=== PATIENT | male | born 1935 | race Caucasian/White ===

== ENCOUNTER 2017-10-20 10:21 | Observation (INO) ==
--- NOTE | 2017-10-20 10:42 | Emergency Department Note ---
ED Disposition Clinical Impression: Right hemiparesis, Constipation, Intractable abdominal pain, Abdominal aortic aneurysm (AAA), Renal insufficiency Disposition: Still a Patient Condition on Discharge: Fair Instructions: DI for Acute Abdomen - Critical Care Critical Care Time: No Attestation: On , the high probability of a clinically significant, sudden or life threatening deterioration of the following system(s) required my full and direct attention, intervention and personal management. The time I documented below is in addition to time spent performing reported procedures but includes the following listed in this critical care notation. Medical Decision Making - Medical Records Medical records reviewed: Yes: I reviewed the patient's medical records. - Sami Inquiry Pt receiving controlled substance: No Sami was queried for this patient: No Vital Signs: 10/20/17 10:22 10/20/17 11:17 10/20/17 11:45 Temperature 98.4 F Temperature Source Oral Pulse Rate [Right Radial] 69 68 64 Respiratory Rate 18 20 20 Blood Pressure [Right Arm] 127/97 128/79 153/83 Blood Pressure Mean [Right Arm] 107 95 106 Blood Pressure Source [Right Arm] Automatic Cuff Automatic Cuff Automatic Cuff Blood Pressure Position [Right Arm] Supine Standing Supine 02 Sat by Pulse Oximetry 95 95 95 Oxygen Delivery Method Room Air Room Air Room Air - Lab Data Lab Results 10/20/17 10:30: WBC 8.4, RBC 4.36 L, Hgb 11.1 L, Hct 36.3 L, MCV 83.4, MCH 25.4 L, MCHC 30.5 L, RDW 17.3, Plt Count 496 H, MPV 7.1 L, Neut % (Auto) 75.4, Lymph % (Auto) 10.5, [place] % (Auto) 6.8, Eos % (Auto) 6.7, Baso % (Auto) 0.6, Neut # ( Auto) 6.3, Lymph # (Auto) 0.9, [place] # (Auto) 0.6, Eos # (Auto) 0.6 H, Baso # ( Auto) 0.1 10/20/17 10:30: Sodium 135 L, Potassium 3.7, Chloride 100, Carbon Dioxide 30, Anion Gap 8.7, BUN 19 H, Creatinine 1.35 H, Estimated Creat Clear 39, Estimated GFR 51 L, Est GFR ( Amer) 61, Glucose 91, Calcium 8.2 L, Total Bilirubin 0.5, AST 25, ALT 16, Alkaline Phosphatase 94, Total Protein 6.1 L, Albumin 2.4 L , Globulin 3.7 H, Albumin/Globulin Ratio 0.6 L, Lipase 41 L Result diagrams: 10/20/17 10:30 10/20/17 10:30 Orders (Tests/Meds): ED MEDICATIONS Discontinued Medications Generic Name Dose Route Start Last Admin Trade Name Freq PRN Reason Stop Dose Admin Sodium Chloride 500 mls @ 999 mls/hr 10/20/17 11:30 Sod Chlor 0.9% 1000ml Bag IV 10/20/17 12:00 .Q31M JOE ORDERS Category Date Time Status Lactic Acid Stat Lab 10/20/17 11:29 Ordered Medical Decision Narrative: I discussed with the and his children in the ending of fecal impaction resulting from prolonged constipation and use of narcotics. They were adamant that they have used every possible method to relieve him and they demanded CT scan. I discussed the results of the CT scan with the family informed them of his severe constipation and extending to the rectosigmoid colon. In addition to a relatively stable abdominal aortic aneurysm and common iliac aneurysms. The family was collectively agreeable that he is not a candidate for surgery or intervention. Called Dr. Simon and discussed with him more complains of approach of his severe constipation that Dr. Perez the radiologist said it is the worst ever. Dr. Simon agreed to admit the patient and consult general surgery for him. Abdominal Pain HPI - General Chief Complaint: Abdominal Pain Stated Complaint: Abdominal Pain Time Seen by Provider: 10/20/17 10:30 Mode of Arrival: EMS Limitations: Physical Limitations Description of Symptoms (Recalled from ER Triage Doc. by RN): Abdominal Pain - History of Present Illness HPI narrative: 82 years old and hospice service due to 32 years old right hemiparesis from a stroke and congestive heart failure. Been experiencing abdominal pain for the past 3 months associated with constipation he usually gets a bowel movement every 3-5 days. He has been getting morphine for abdominal pain and his last bowel movement was 5 days ago. He has no vomiting no coffee-ground emesis is no bleeding per rectum or diarrhea. Has no fever or chills. He continues to receive p.o. intake. MD complaint: abdominal pain Onset (ago): month(s) (x 3 months) Location: diffuse Severity: mild Quality: cramping Radiation: none Migration to: no migration Relieving factors: medication (yes, morpine. ) Exacerbating factors: eating, bowel movement (lack of bowel movement. ) Associated symptoms: denies other symptoms Treatments prior to arrival: prescription analgesics - Related Data Home Medications Medication Instructions Recorded Confirmed Sennosides [Senna] 8.6 mg PO BID 10/20/17 10/20/17 Allergies Allergy/AdvReac Type Severity Reaction Status Date / Time No Known Allergies Allergy Unverified 07/07/17 15:03 [facility] History I have reviewed the patient's past medical history: Yes (by the famil , nursing staff and hospice.) Amputation: No Fractures: No - Social History Educational Level: Completed High School Smoking Status: Never smoker Alcohol Intake: never - Psychiatric History Expresses thoughts of harming self/others: None Suicide Plan Description: No Plan ROS Obtained: Yes All systems reviewed & no additional complaints Physical Exam - General General appearance: alert, in no apparent distress - Head Head exam: atraumatic, normocephalic, normal inspection - Eye Eye exam: Present: normal appearance, PERRL, EOMI - ENT ENT exam: Present: normal exam, normal oropharynx, mucous membranes moist, TM's normal bilaterally, normal external ear exam - Neck Neck exam: Present: normal inspection, full ROM, trachea midline. Absent: meningismus, lymphadenopathy - Chest Chest inspection: Present: normal inspection, symmetric chest wall rise. Absent : tenderness - Respiratory Respiratory exam: Present: normal lung sounds bilaterally. Absent: respiratory distress - Cardiovascular Cardiovascular exam: Present: regular rate, normal rhythm. Absent: JVD - Abdominal Exam Abdominal exam: Present: soft, distention, hyperactive bowel sounds (Soft distended hyperactive bowel sounds no guarding no rigidity no focal tenderness no rebound no cross tenderness. ), other (Soft distended with positive bowel sounds). Absent: tenderness, guarding, rebound, rigidity Comment: Immediately after the anal verge there was a large hard mass of stool the prostate was not palpable. Large fecal impaction. - exam: Present: normal inspection, normal testicular lie, other ( Uncircumcised with indwelling catheter.) - Extremities Exam Extremities exam: Present: other (Right hemiparesis.) - Neurological Exam Neurological exam: Present: alert, CN II-XII intact, other (Right hemiparesis.) - Psychiatric Psychiatric exam: Present: flat affect - Skin Skin exam: Present: other (There is a grade 2 bedsore over the right buttock.) - Lymphatic Lymphatic Findings: no adenopathy
[2017-10-20 10:48] LABS: Basophils # 0.1 K/mm3 (0-0.2); Basophils % 0.6 % (0.1-2.0); Eosinophils # 0.6 K/mm3 (0.0-0.4); Eosinophils % 6.7 % (0.1-12.0); Hematocrit 36.3 % (42.0-52.0); Hemoglobin 11.1 g/dL (14.1-18.0); Lymphocytes # 0.9 K/mm3 (0.7-4.5); Lymphocytes % 10.5 K/mm3 (10-50); Mean Corpuscular HGB Conc 30.5 g/dL (31.8-35.4); Mean Corpuscular Hemoglobin 25.4 pg (27.0-31.2); Mean Corpuscular Volume 83.4 fl (80-94); Mean Platelet Volume 7.1 fl (7.4-10.4); Monocytes # 0.6 K/mm3 (0.1-1.0); Monocytes % 6.8 % (1.7-9.3); Neutrophils # 6.3 K/mm3 (1.8-7.8); Neutrophils % 75.4 % (37.0-80.0); Platelet Count 496 K/mm3 (142-424); Red Blood Count 4.36 M/mm3 (4.60-6.20); Red Cell Distribution Width 17.3 % (11.5-17.5); White Blood Count 8.4 K/mm3 (4.8-10.8)
[2017-10-20 11:00] LABS: Albumin Level 2.4 gm/dL (3.4-5.0); Albumin/Globulin Ratio 0.6 (1.1-1.8); Anion Gap 8.7 mEq/L (5-15); Bilirubin,Total 0.5 mg/dL (0.2-1.0); Calcium 8.2 mg/dL (8.5-10.1); Globulin 3.7 gm/dl (1.3-3.2); Potassium 3.7 mmoL/L (3.5-5.1); Total Protein,Serum 6.1 gm/dL (6.4-8.2)
--- NOTE | 2017-10-20 14:49 | History & Physical Report ---
*Admission Date: 10/20/17 <Angelina Randolph 10/20/17 14:49> *Chief complaint: constipation <Angelina Randolph 10/20/17 14:49> *History of present illness: Mr Og is an 82 years old male under hospice service for 1 year due to 32 years old right hemiparesis from a stroke and congestive heart failure. He has been experiencing abdominal pain for the past 3 months associated with constipation. He usually has a bowel movement every 3-5 days. He has been getting morphine for abdominal pain and his last bowel movement was 5 days ago. He has had no vomiting or coffee-ground emesis and no bleeding per rectum or diarrhea. Has no fever or chills. His has had him on full liquids and clear liquids. She puries all of his food. The abdominal pain has increased over the last week. Hospice has tried to intervene and have given him lactulose, suppositories and several enemas. They have also removed fecal impactions. He has continued to have abdominal pain and required pain medicine about every 2 hours. Thus they brought him to the emergency room for further studies. With evaluation in the emergency room CT scan revealed large amounts of stool in the large colon with a huge fecal impaction at the sigmoid colon. Thus he was admitted with surgical consultation. At the time of this exam patient is resting quietly on his right side. He has and family are at bedside. He remains remains n.p.o. until after surgical consultation. <Angelina Randolph 10/20/17 15:59> [facility] History Medical History: Reports:: Aneurysm, Atherosclerotic Heart Disease, BPH, Cardiomyopathy, Congestive Heart Failure, Coronary Artery Disease, Cerebrovascular Accident, Depression, Hypertension, Myocardial Infarction, Renal Disease, Ulcer <Angelina Randolph 10/20/17 15:09> Other Medical History: Reports: Hypothyroidism, Thyroid Disease, Other (Chronic constipation: A phasic) <Angelina Randolph 10/20/17 15:09> Laterality Cases: Left: Other <Angelina Randolph 10/20/17 15:09> Amputation: No <Angelina Randolph 10/20/17 14:49> Fractures: No <Angelina Randolph 10/20/17 14:49> Comment: Discectomy in 1967; knee arthroplasty; deviated septum <Angelina Randolph 10/20/17 15:09> - *Social History Educational Level: Completed High School <Angelina Randolph 10/20/17 14:49> Smoking Status: Never smoker <Angelina Randolph 10/20/17 14:49> Alcohol Intake: never <Angelina Randolph 10/20/17 14:49> - Psychiatric History Expresses thoughts of harming self/others: None <Angelina Randolph 10/20/17 14: 49> Suicide Plan Description: No Plan <Angelina Randolph 10/20/17 14:49> *Family Hx:: Coronary Artery Disease, Diabetes <Angelina Randolph 10/20/17 15:09 > Review of Systems - Review of Systems Information obtained from patient's . <Angelina Randolph 10/20/17 15:59> - Constitutional Denies fever(s), Denies headache(s) <Angelina Randolph 10/20/17 15:59> - ENT Comments: No upper respiratory signs or symptoms <Angelina Randolph 10/20/17 15:59> - *Cardiovascular Denies chest pain, Denies shortness of breath <Angelina Randolph 10/20/17 15:59> - *Respiratory Denies chest congestion, Denies cough, Denies shortness of breath <Angelina Randolph 10/20/17 15:59> - *Gastrointestinal Reports abdominal pain, Reports change in bowel habits, Reports constipation, Denies loose stools, Denies difficulty swallowing, Denies vomiting blood, Denies vomiting <Angelina Randolph 10/20/17 15:59> - *Genitourinary Comments: Patient has a Morley catheter <Angelina Randolph 10/20/17 15:59> - *Musculoskeletal Comments: Patient has been bedfast since June 2017 <Angelina Randolph 10/20/17 15:59> - *Neurologic Comments: Dysphasic <Angelina Randolph 10/20/17 15:59> Meds Home Medications Medication Instructions Recorded Confirmed Type Amlodipine Besylate [Amlodipine 10 mg PO DAILY 10/20/17 10/20/17 History 10mg Tab] Aspirin [Aspirin 81mg EC Tab] 81 mg PO DAILY 10/20/17 10/20/17 History Bisacodyl [Dulcolax 10mg Supp] 10 mg RC DAILYP PRN 10/20/17 10/20/17 History Ciprofloxacin HCl [Cipro 500mg Tab] 500 mg PO BID 10/20/17 10/20/17 History Hydralazine HCl 50 mg PO BID 10/20/17 10/20/17 History Hydromorphone HCl [Dilaudid 4mg 2 mg PO Q4HP PRN 10/20/17 10/20/17 History Tab] Hyoscyamine Sulfate [Levsin 0.125 mg PO Q4-6H 10/20/17 10/20/17 History 0.125mg tablet] Isosorbide Dinitrate [Isordil 20mg 40 mg PO TID 10/20/17 10/20/17 History tablet] L.acidoph,Paracasei, B.lactis 1 each PO DAILY 10/20/17 10/20/17 History [Probiotic] LORazepam [Ativan 0.5mg tablet] 0.5 mg PO Q6 MDD 2mg 10/20/17 10/20/17 History Levothyroxine Sodium 50 mcg PO DAILY 10/20/17 10/20/17 History [Levothyroxine 50mcg (0.05mg) Tab] Metoclopramide HCl [Reglan 5mg 5 mg PO TID 10/20/17 10/20/17 History Tablet] Morphine Sulfate [Morphine Sulfate 10 mg PO Q4-6H PRN MDD 80mg 10/20/17 History 10mg/5ml Oral Soln] Nitroglycerin [Nitrostat 0.4mg SL 0.4 mg SL NEEDED PRN 10/20/17 10/20/17 History Tablet] Sennosides [Senna] 8.6 mg PO BID 10/20/17 10/20/17 History Simethicone [Phazyme] 60 mg PO TID MDD 1 10/20/17 10/20/17 History Torsemide [Demadex] 20 mg PO DAILY MDD 20mg 10/20/17 10/20/17 History hydrOXYzine HCl [Hydroxyzine HCl] 10 mg PO Q4-6H 10/20/17 10/20/17 History metroNIDAZOLE [metroNIDAZOLE 500mg 500 mg PO TIDWM 10/20/17 10/20/17 History Tablet] <Cruzito Simon - 10/20/17 17:56> Allergies Allergy/AdvReac Type Severity Reaction Status Date / Time No Known Allergies Allergy Unverified 07/07/17 15:03 <Cruzito Simon - 10/20/17 17:56> Exam Vital signs and Labs for Last 24 Hours: Temp Pulse Resp BP Pulse Ox 98.2 F 68 18 156/96 92 L 10/20/17 15:45 10/20/17 15:45 10/20/17 15:45 10/20/17 15:45 10/20/17 15:45 <Cruzito Simon - 10/20/17 17:56> Temp Pulse Resp BP Pulse Ox 98.2 F 65 18 145/85 95 10/20/17 13:31 10/20/17 14:35 10/20/17 14:35 10/20/17 14:35 10/20/17 14:35 Laboratory Tests 10/20/17 10/20/17 10/20/17 10:30 10:30 11:58 WBC 8.4 RBC 4.36 L Hgb 11.1 L Hct 36.3 L MCV 83.4 MCH 25.4 L MCHC 30.5 L Plt Count 496 H Neut % (Auto) 75.4 Lymph % (Auto) 10.5 [place] % (Auto) 6.8 Eos % (Auto) 6.7 Baso % (Auto) 0.6 Neut # (Auto) 6.3 Lymph # (Auto) 0.9 [place] # (Auto) 0.6 Eos # (Auto) 0.6 H Baso # (Auto) 0.1 Sodium 135 L Potassium 3.7 Chloride 100 Carbon Dioxide 30 Anion Gap 8.7 BUN 19 H Creatinine 1.35 H Estimated Creat Clear 39 Estimated GFR 51 L Est GFR ( Amer) 61 Glucose 91 Lactic Acid 1.1 Calcium 8.2 L Total Bilirubin 0.5 AST 25 ALT 16 Alkaline Phosphatase 94 Total Protein 6.1 L Albumin 2.4 L Globulin 3.7 H Albumin/Globulin Ratio 0.6 L Lipase 41 L <Angelina Randolph - 10/20/17 14:49> I & O for Last 24 hours: Intake & Output 10/18/17 10/19/17 10/20/17 10/21/17 11:59 11:59 11:59 11:59 Weight 119 lb 4 oz <Cruzito Simon 10/20/17 17:56> Radiology Reports for the Last 24 Hours: 10/20/2017 CT of the abdomen and pelvis Pelvis IMPRESSION: There are findings of very marked diffuse constipation with large fecal impaction of the rectum and lower sigmoid colon with the diameter of the upper rectum measuring 11.1 cm. The degree of constipation similar to the previous study in January 2017 though there could be more stool in the rectum and lower sigmoid colon and the previous study. 2. 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 Additional aneurysmal dilatation of infrarenal aorta with measurements as described above with extension into the right common iliac artery. <Angelina Randolph 10/20/17 14:49> - Constitutional no acute distress, thin <Angelina Randolph 10/20/17 15:59> Comments: Appears comfortable in the bed. Nods head with answers to questions <Angelina Randolph 10/20/17 15:59> - *Routine HEENT Exam Head: Present: normocephalic <Angelina Randolph 10/20/17 15:59> ENT: Present: mucous membranes moist <Angelina Randolph 10/20/17 15:59> - *Routine Respiratory Exam Comments: Poor inspiratory effort <Angelina Randolph 10/20/17 15:59> - *Routine Cardiovascular Exam Present: RRR <Angelina Randolph 10/20/17 15:59> - *Routine Abdominal Exam Comments: Hyperactive bowel sounds. Tender in left upper and mid quadrants. Fullness palpated. <Angelina Randolph 10/20/17 15:59> - *Routine Extremities Exam Absent: edema, calf tenderness <Angelina Randolph 10/20/17 15:59> - *Routine Skin Exam Comments: Wound on right hip. <Angelina Randolph 10/20/17 15:59> - *Routine Neurological Exam Present: alert <Angelina Randolph 10/20/17 15:59> Dysphagia <Angelina Randolph 10/20/17 15:59> Assessment and Plan (1) Constipation Current visit: Yes Status: Acute Category: Medical Code(s): K59.00 - Constipation, unspecified (2) Intractable abdominal pain Current visit: Yes Status: Acute Category: Medical Code(s): R10.9 - Unspecified abdominal pain (3) CAD (coronary artery disease) Current visit: Yes Status: Chronic Category: Medical Code(s): I25.10 - Atherosclerotic heart disease of [place] coronary artery without angina pectoris (4) Cardiomyopathy Current visit: Yes Status: Chronic Category: Medical Code(s): I42.9 - Cardiomyopathy, unspecified (5) BPH (benign prostatic hyperplasia) Current visit: Yes Status: Chronic Category: Medical Code(s): N40.0 - Benign prostatic hyperplasia without lower urinary tract symptoms (6) Depression Current visit: Yes Status: Chronic Category: Medical Code(s): F32.9 - Major depressive disorder, single episode, unspecified (7) Abdominal aortic aneurysm (AAA) Current visit: Yes Status: Chronic Category: Medical Code(s): I71.4 - Abdominal aortic aneurysm, without rupture (8) Renal insufficiency Current visit: Yes Status: Chronic Category: Medical Code(s): N28.9 - Disorder of kidney and ureter, unspecified (9) Right hemiparesis Current visit: Yes Status: Chronic Category: Medical Code(s): G81.91 - Hemiplegia, unspecified affecting right dominant side <Angelina Randolph - 10/20/17 15:43> (1) Obstipation Current visit: Yes Status: Acute Category: Medical Code(s): K59.00 - Constipation, unspecified (2) Chronic constipation Current visit: Yes Status: Chronic Category: Medical Code(s): K59.09 - Other constipation (3) Intractable abdominal pain Current visit: Yes Status: Acute Category: Medical Code(s): R10.9 - Unspecified abdominal pain (4) CAD (coronary artery disease) Current visit: Yes Status: Chronic Category: Medical Code(s): I25.10 - Atherosclerotic heart disease of [place] coronary artery without angina pectoris (5) Cardiomyopathy Current visit: Yes Status: Chronic Category: Medical Code(s): I42.9 - Cardiomyopathy, unspecified (6) BPH (benign prostatic hyperplasia) Current visit: Yes Status: Chronic Category: Medical Code(s): N40.0 - Benign prostatic hyperplasia without lower urinary tract symptoms (7) Depression Current visit: Yes Status: Chronic Category: Medical Code(s): F32.9 - Major depressive disorder, single episode, unspecified (8) Abdominal aortic aneurysm (AAA) Current visit: Yes Status: Chronic Category: Medical Code(s): I71.4 - Abdominal aortic aneurysm, without rupture (9) Renal insufficiency Current visit: Yes Status: Chronic Category: Medical Code(s): N28.9 - Disorder of kidney and ureter, unspecified (10) Right hemiparesis Current visit: Yes Status: Chronic Category: Medical Code(s): G81.91 - Hemiplegia, unspecified affecting right dominant side <Cruzito Simon - 10/20/17 17:56> - Assessment and plan all Dx Assessment and Plan for all problems:: Patient seen and examined. Appears comfortable at this time. Presentation today is similar to admission of 01/2017 at which time he responded to Suppositories and Mineral Oil enemas. THese have been ordered per Dr. Bernal's surgical consultation. Will advance to full liquid diet. <Cruzito Simon - 10/20/17 17:56>
--- NOTE | 2017-10-20 17:38 | Consult Report ---
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 He has been experiencing abdominal pain for the past 3 months associated with constipation. He usually has a bowel movement every 3-5 days. He has been getting morphine for abdominal pain and his last bowel movement was 5 days ago. He has had no vomiting or coffee-ground emesis and no bleeding per rectum or diarrhea. Has no fever or chills. His has had him on full liquids and clear liquids. She puries all of his food. The abdominal pain has increased over the last week. Hospice has tried to intervene and have given him lactulose, suppositories and several enemas. They have also removed fecal impactions. He has continued to have abdominal pain and required pain medicine about every 2 hours. Thus they brought him to the emergency room for further studies. With evaluation in the emergency room CT scan revealed large amounts of stool in the large colon with a huge fecal impaction at the sigmoid colon. Thus he was admitted with surgical consultation. Review of Systems - Review of Systems Review of systems:: unable to obtain - *Neurologic Denies headache(s) [facility] History Medical History: Reports:: Aneurysm, Atherosclerotic Heart Disease, BPH, Cardiomyopathy, Congestive Heart Failure, Coronary Artery Disease, Cerebrovascular Accident, Depression, Hypertension, Myocardial Infarction, Renal Disease, Ulcer Denies:: Diabetes Mellitus Type 1, Diabetes Mellitus Type 2 Other Medical History: Reports: Hypothyroidism, Thyroid Disease, Other (Chronic constipation: A phasic) Laterality Cases: Left: Other Amputation: No Fractures: No - *Social History Educational Level: Completed High School Smoking Status: Never smoker Alcohol Intake: never Occupational Status: disabled Housing: house Household Members: spouse, family - Psychiatric History Expresses thoughts of harming self/others: None Suicide Plan Description: No Plan Pschychiatric History:: Reports:: Depression *Family Hx:: Coronary Artery Disease, Diabetes Meds Home Medications Medication Instructions Recorded Confirmed Type Amlodipine Besylate [Amlodipine 10 mg PO DAILY 10/20/17 10/20/17 History 10mg Tab] Bisacodyl [Dulcolax 10mg Supp] 10 mg RC DAILYP PRN 10/20/17 10/20/17 History Ciprofloxacin HCl [Cipro 500mg Tab] 500 mg PO BID 10/20/17 10/20/17 History Famciclovir [Famciclovir] 500 mg PO DAILY 10/20/17 10/20/17 History Gabapentin [Gabapentin 300mg Cap] 300 mg PO HS MDD 300 10/20/17 10/20/17 History Hydralazine HCl 50 mg PO BID 10/20/17 10/20/17 History Hyoscyamine Sulfate [Levsin 0.125 mg PO Q4-6H 10/20/17 10/20/17 History 0.125mg tablet] Isosorbide Dinitrate [Isordil 20mg 40 mg PO TID 10/20/17 10/20/17 History tablet] LORazepam [Ativan 0.5mg tablet] 0.5 mg PO Q6 MDD 2mg 10/20/17 10/20/17 History Lactulose [Lactulose 20gm/30ml 20 gm PO DAILYP PRN 10/20/17 10/20/17 History Oral Soln] Levothyroxine Sodium 50 mcg PO DAILY 10/20/17 10/20/17 History [Levothyroxine 50mcg (0.05mg) Tab] Lidocaine/Prilocaine 1 units TOPICAL TID 10/20/17 10/20/17 History [Lidocaine-Prilocaine Cream] Metoclopramide HCl [Reglan 5mg 5 mg PO TID 10/20/17 10/20/17 History Tablet] Morphine Sulfate [Morphine Sulfate 10 mg PO Q4-6H PRN MDD 80mg 10/20/17 History 10mg/5ml Oral Soln] Nitroglycerin [Nitrostat 0.4mg SL 0.4 mg SL NEEDED PRN 10/20/17 10/20/17 History Tablet] Sennosides [Senna] 8.6 mg PO BID 10/20/17 10/20/17 History Simethicone [Phazyme] 60 mg PO TID MDD 1 10/20/17 10/20/17 History Torsemide [Demadex] 20 mg PO DAILY MDD 20mg 10/20/17 10/20/17 History hydrOXYzine HCl [Hydroxyzine HCl] 10 mg PO Q4-6H 10/20/17 10/20/17 History metroNIDAZOLE [metroNIDAZOLE 500mg 500 mg PO TIDWM 10/20/17 10/20/17 History Tablet] Allergies Allergy/AdvReac Type Severity Reaction Status Date / Time No Known Allergies Allergy Unverified 07/07/17 15:03 Exam Vital signs and Labs for Last 24 Hours: Temp Pulse Resp BP Pulse Ox 98.2 F 68 18 156/96 92 L 10/20/17 15:45 10/20/17 15:45 10/20/17 15:45 10/20/17 15:45 10/20/17 15:45 I & O for Last 24 hours: Intake & Output 10/18/17 10/19/17 10/20/17 10/21/17 11:59 11:59 11:59 11:59 Weight 119 lb 4 oz - Constitutional no acute distress - *Routine Abdominal Exam Present: soft. Absent: tenderness Results - Labs 10/20/17 10:30 10/20/17 10:30 Assessment and Plan (1) Constipation Current visit: Yes Status: Acute Category: Medical Code(s): K59.00 - Constipation, unspecified (2) Intractable abdominal pain Current visit: Yes Status: Acute Category: Medical Code(s): R10.9 - Unspecified abdominal pain (3) CAD (coronary artery disease) Current visit: Yes Status: Chronic Category: Medical Code(s): I25.10 - Atherosclerotic heart disease of [place] coronary artery without angina pectoris (4) Cardiomyopathy Current visit: Yes Status: Chronic Category: Medical Code(s): I42.9 - Cardiomyopathy, unspecified (5) BPH (benign prostatic hyperplasia) Current visit: Yes Status: Chronic Category: Medical Code(s): N40.0 - Benign prostatic hyperplasia without lower urinary tract symptoms (6) Depression Current visit: Yes Status: Chronic Category: Medical Code(s): F32.9 - Major depressive disorder, single episode, unspecified (7) Abdominal aortic aneurysm (AAA) Current visit: Yes Status: Chronic Category: Medical Code(s): I71.4 - Abdominal aortic aneurysm, without rupture (8) Renal insufficiency Current visit: Yes Status: Chronic Category: Medical Code(s): N28.9 - Disorder of kidney and ureter, unspecified (9) Right hemiparesis Current visit: Yes Status: Chronic Category: Medical Code(s): G81.91 - Hemiplegia, unspecified affecting right dominant side - Assessment and plan all Dx Assessment and Plan for all problems:: Previously when the patient had similar symptoms he responded to bowel regimen from below. I would recommend withholding oral cathartics at this time due to this eliciting cramping abdominal pain. Previously he responded to mineral oil enemas and Dulcolax suppositories. I will go ahead and order this. Plan for mineral oil enema and 2 Dulcolax suppositories tonight. This may be repeated tomorrow. If he continues to have problems and refractory constipation milk and molasses enema may be considered.
[2017-10-21 06:36] LABS: Basophils # 0.1 K/mm3 (0-0.2); Basophils % 0.6 % (0.1-2.0); Eosinophils # 0.4 K/mm3 (0.0-0.4); Eosinophils % 4.5 % (0.1-12.0); Hematocrit 39.3 % (42.0-52.0); Hemoglobin 11.9 g/dL (14.1-18.0); Lymphocytes # 0.6 K/mm3 (0.7-4.5); Mean Corpuscular HGB Conc 30.2 g/dL (31.8-35.4); Mean Corpuscular Hemoglobin 25.3 pg (27.0-31.2); Mean Corpuscular Volume 83.8 fl (80-94); Mean Platelet Volume 7.3 fl (7.4-10.4); Monocytes # 0.6 K/mm3 (0.1-1.0); Monocytes % 5.5 % (1.7-9.3); Neutrophils # 8.3 K/mm3 (1.8-7.8); Neutrophils % 83.4 % (37.0-80.0); Platelet Count 503 K/mm3 (142-424); Red Blood Count 4.68 M/mm3 (4.60-6.20); Red Cell Distribution Width 17.3 % (11.5-17.5); White Blood Count 9.9 K/mm3 (4.8-10.8)
[2017-10-21 06:43] LABS: Anion Gap 12.7 mEq/L (5-15); Potassium 3.7 mmoL/L (3.5-5.1)
--- NOTE | 2017-10-21 06:58 | Progress Note ---
Subjective Patient reports: bowel movement ((2 large BMs per nsg)) Exam Vital signs and Labs for Last 24 Hours: Temp Pulse Resp BP Pulse Ox 98.1 F 91 H 20 148/95 94 L 10/21/17 04:00 10/21/17 04:00 10/21/17 04:00 10/21/17 04:00 10/21/17 04:00 Laboratory Results - last 24 hr 10/21/17 06:10: WBC 9.9, RBC 4.68, Hgb 11.9 L, Hct 39.3 L, MCV 83.8, MCH 25.3 L , MCHC 30.2 L, RDW 17.3, Plt Count 503 H, MPV 7.3 L, Neut % (Auto) 83.4 H, Lymph % (Auto) 6.0 L, [place] % (Auto) 5.5, Eos % (Auto) 4.5, Baso % (Auto) 0.6, Neut # (Auto) 8.3 H, Lymph # (Auto) 0.6 L, [place] # (Auto) 0.6, Eos # (Auto) 0.4, Baso # (Auto) 0.1 10/21/17 06:10: Sodium 138, Potassium 3.7, Chloride 102, Carbon Dioxide 27, Anion Gap 12.7, BUN 18, Creatinine 1.30, Estimated Creat Clear 34, Estimated GFR 53 L, Est GFR ( Amer) 64, Glucose 99 I & O for Last 24 hours: Intake & Output 10/18/17 10/19/17 10/20/17 10/21/17 11:59 11:59 11:59 11:59 Output Total 1400 / 1400 Balance -1400 / -1400 Weight 119 lb 4 oz - Constitutional no acute distress - *Routine Abdominal Exam Present: soft Progress Note: A&P (1) Obstipation Status: Acute Current Visit: Yes (2) Chronic constipation Status: Chronic Assessment and plan: Significant results with mineral oil enemas and dulcolax suppositories. Continue above regimen PRN. May require milk and molasses enemas if he does not continue to respond to above. Current Visit: Yes (3) Intractable abdominal pain Status: Acute Current Visit: Yes (4) CAD (coronary artery disease) Status: Chronic Current Visit: Yes (5) Cardiomyopathy Status: Chronic Current Visit: Yes (6) BPH (benign prostatic hyperplasia) Status: Chronic Current Visit: Yes (7) Depression Status: Chronic Current Visit: Yes (8) Abdominal aortic aneurysm (AAA) Status: Chronic Current Visit: Yes (9) Renal insufficiency Status: Chronic Current Visit: Yes (10) Right hemiparesis Status: Chronic Current Visit: Yes
--- NOTE | 2017-10-21 07:22 | Pharmacy Consult Notes ---
[facility] Pharmacy VTE Monitoring - Patient Demographics Admission date: 10/20/17 Report Date: 10/21/17 Time: 07:21 Allergies/Adverse Reactions: Patient Allergies No Known Allergies Allergy (Unverified 07/07/17 15:03) Height: 1.7 m Weight: 54.091 kg Patient Problems: Current Active Problems Right hemiparesis (Chronic) Constipation (Acute) Intractable abdominal pain (Acute) Abdominal aortic aneurysm (AAA) (Chronic) Renal insufficiency (Chronic) CAD (coronary artery disease) (Chronic) Cardiomyopathy (Chronic) BPH (benign prostatic hyperplasia) (Chronic) Depression (Chronic) Chronic constipation (Chronic) Obstipation (Acute) - VTE Risk Labs: VTE Related Lab Results Hgb 11.9 g/dL (14.1-18.0) L 10/21/17 06:10 Hct 39.3 % (42.0-52.0) L 10/21/17 06:10 Plt Count 503 K/mm3 (142-424) H 10/21/17 06:10 BUN 18 mg/dL (7-18) 10/21/17 06:10 Creatinine 1.30 mg/dL (0.70-1.30) 10/21/17 06:10 Estimated Creat Clear 34 mL/min (0-300) 10/21/17 06:10 Was VTE Risk Assessment Performed: Yes VTE Score: 4 VTE Risk Level: Low Risk - Prophylaxis VTE Prophylaxis Ordered?: Yes Types of VTE Prophylaxis: TEDS Knee High Location of Applied Device: Bilateral Lower Extremeties - VTE Diagnosis Confirmed Treatment or plan recommended: Continue Current Treatment
--- NOTE | 2017-10-21 08:04 | Progress Note ---
<Angelina Randolph - Last Filed: 10/21/17 07:56> Internal Medicine - PN: Subj *Date: 10/21/17 *Time: 07:56 Interval history: Per son: Patient had a few restless moments during the night but otherwise slept. He did not require any additional pain medicine. He has had 2 large soft stools. Did take in liquids last p.m. TSH elevated at 5.67 Exam Vital signs and Labs for Last 24 Hours: Temp Pulse Resp BP Pulse Ox 98.9 F 73 20 140/84 95 10/21/17 07:29 10/21/17 07:29 10/21/17 07:29 10/21/17 07:29 10/21/17 07:29 Laboratory Results - last 24 hr 10/21/17 06:10: WBC 9.9, RBC 4.68, Hgb 11.9 L, Hct 39.3 L, MCV 83.8, MCH 25.3 L , MCHC 30.2 L, RDW 17.3, Plt Count 503 H, MPV 7.3 L, Neut % (Auto) 83.4 H, Lymph % (Auto) 6.0 L, [place] % (Auto) 5.5, Eos % (Auto) 4.5, Baso % (Auto) 0.6, Neut # (Auto) 8.3 H, Lymph # (Auto) 0.6 L, [place] # (Auto) 0.6, Eos # (Auto) 0.4, Baso # (Auto) 0.1 10/21/17 06:10: Sodium 138, Potassium 3.7, Chloride 102, Carbon Dioxide 27, Anion Gap 12.7, BUN 18, Creatinine 1.30, Estimated Creat Clear 34, Estimated GFR 53 L, Est GFR ( Amer) 64, Glucose 99 I & O for Last 24 hours: Intake & Output 10/18/17 10/19/17 10/20/17 10/21/17 11:59 11:59 11:59 11:59 Output Total 1400 / 1400 Balance -1400 / -1400 Weight 119 lb 4 oz - Constitutional no acute distress Comments: Sleeping - *Routine Respiratory Exam Present: CTA bilaterally Comments: Respirations even and unlabored - *Routine Cardiovascular Exam Present: RRR - *Routine Abdominal Exam Present: soft, normoactive bowel sounds - *Routine Extremities Exam Absent: edema Assessment and Plan (1) Obstipation Current visit: Yes Status: Acute Category: Medical Code(s): K59.00 - Constipation, unspecified (2) Chronic constipation Current visit: Yes Status: Chronic Category: Medical Code(s): K59.09 - Other constipation (3) Intractable abdominal pain Current visit: Yes Status: Acute Category: Medical Code(s): R10.9 - Unspecified abdominal pain (4) CAD (coronary artery disease) Current visit: Yes Status: Chronic Category: Medical Code(s): I25.10 - Atherosclerotic heart disease of [place] coronary artery without angina pectoris (5) Cardiomyopathy Current visit: Yes Status: Chronic Category: Medical Code(s): I42.9 - Cardiomyopathy, unspecified (6) BPH (benign prostatic hyperplasia) Current visit: Yes Status: Chronic Category: Medical Code(s): N40.0 - Benign prostatic hyperplasia without lower urinary tract symptoms (7) Depression Current visit: Yes Status: Chronic Category: Medical Code(s): F32.9 - Major depressive disorder, single episode, unspecified (8) Abdominal aortic aneurysm (AAA) Current visit: Yes Status: Chronic Category: Medical Code(s): I71.4 - Abdominal aortic aneurysm, without rupture (9) Renal insufficiency Current visit: Yes Status: Chronic Category: Medical Code(s): N28.9 - Disorder of kidney and ureter, unspecified (10) Right hemiparesis Current visit: Yes Status: Chronic Category: Medical Code(s): G81.91 - Hemiplegia, unspecified affecting right dominant side - Assessment and plan all Dx Assessment and Plan for all problems:: Maintain comfort. May need to repeat suppositories today. Increase synthroid <Cruzito Simon - Last Filed: 10/21/17 09:07> Internal Medicine - PN: Subj *Date: 10/21/17 *Time: 09:06 Exam Vital signs and Labs for Last 24 Hours: Temp Pulse Resp BP Pulse Ox 98.9 F 73 20 140/84 95 10/21/17 07:29 10/21/17 07:29 10/21/17 07:29 10/21/17 07:29 10/21/17 07:29 Laboratory Results - last 24 hr 10/21/17 06:10: WBC 9.9, RBC 4.68, Hgb 11.9 L, Hct 39.3 L, MCV 83.8, MCH 25.3 L , MCHC 30.2 L, RDW 17.3, Plt Count 503 H, MPV 7.3 L, Neut % (Auto) 83.4 H, Lymph % (Auto) 6.0 L, [place] % (Auto) 5.5, Eos % (Auto) 4.5, Baso % (Auto) 0.6, Neut # (Auto) 8.3 H, Lymph # (Auto) 0.6 L, [place] # (Auto) 0.6, Eos # (Auto) 0.4, Baso # (Auto) 0.1 10/21/17 06:10: Sodium 138, Potassium 3.7, Chloride 102, Carbon Dioxide 27, Anion Gap 12.7, BUN 18, Creatinine 1.30, Estimated Creat Clear 34, Estimated GFR 53 L, Est GFR ( Amer) 64, Glucose 99 I & O for Last 24 hours: Intake & Output 10/18/17 10/19/17 10/20/17 10/21/17 11:59 11:59 11:59 11:59 Intake Total 240 / 240 Output Total 1400 / 1400 Balance -1160 / -1160 Weight 119 lb 4 oz Assessment and Plan (1) Obstipation Current visit: Yes Status: Acute Category: Medical Code(s): K59.00 - Constipation, unspecified (2) Chronic constipation Current visit: Yes Status: Chronic Category: Medical Code(s): K59.09 - Other constipation (3) Intractable abdominal pain Current visit: Yes Status: Acute Category: Medical Code(s): R10.9 - Unspecified abdominal pain (4) CAD (coronary artery disease) Current visit: Yes Status: Chronic Category: Medical Code(s): I25.10 - Atherosclerotic heart disease of [place] coronary artery without angina pectoris (5) Cardiomyopathy Current visit: Yes Status: Chronic Category: Medical Code(s): I42.9 - Cardiomyopathy, unspecified (6) BPH (benign prostatic hyperplasia) Current visit: Yes Status: Chronic Category: Medical Code(s): N40.0 - Benign prostatic hyperplasia without lower urinary tract symptoms (7) Depression Current visit: Yes Status: Chronic Category: Medical Code(s): F32.9 - Major depressive disorder, single episode, unspecified (8) Abdominal aortic aneurysm (AAA) Current visit: Yes Status: Chronic Category: Medical Code(s): I71.4 - Abdominal aortic aneurysm, without rupture (9) Renal insufficiency Current visit: Yes Status: Chronic Category: Medical Code(s): N28.9 - Disorder of kidney and ureter, unspecified (10) Right hemiparesis Current visit: Yes Status: Chronic Category: Medical Code(s): G81.91 - Hemiplegia, unspecified affecting right dominant side - Assessment and plan all Dx Assessment and Plan for all problems:: Patient seen and examined. Concur with above. Will repeat suppository today and enema if needed.
--- NOTE | 2017-10-22 06:57 | Progress Note ---
Subjective Patient reports: no new complaints, bowel movement Exam Vital signs and Labs for Last 24 Hours: Temp Pulse Resp BP Pulse Ox 97.8 F 74 18 148/86 99 10/22/17 03:49 10/22/17 03:49 10/22/17 03:49 10/22/17 03:49 10/22/17 03:49 Laboratory Results - last 24 hr 10/21/17 18:08: Urine Color Yellow, Urine Appearance Clear, Urine pH 5.5, Ur Specific [place] 1.010, Urine Protein Negative, Urine Glucose (UA) Negative, Urine Ketones Negative, Urine Blood Trace-i, Urine Nitrate Positive, Urine Bilirubin Negative, Urine Urobilinogen 0.2, Ur Leukocyte Esterase 1+ A, Urine RBC 5-10, Urine WBC 10-20 A, Ur Squamous Epith Cells None, Urine Bacteria Trace , Hyaline Casts Occ I & O for Last 24 hours: Intake & Output 10/19/17 10/20/17 10/21/17 10/22/17 11:59 11:59 11:59 11:59 Intake Total 240 / 240 2408 / 2408 Output Total 1400 / 1400 1100 / 1100 Balance -1160 / -1160 1308 / 1308 Weight 119 lb 4 oz 125 lb 7.088 oz - Constitutional no acute distress - *Routine Respiratory Exam Absent: respiratory distress - *Routine Abdominal Exam Present: soft Progress Note: A&P (1) Obstipation Status: Acute Current Visit: Yes (2) Chronic constipation Status: Chronic Assessment and plan: The patient continues to have bowel function on his current regimen. Continue Dulcolax suppositories and mineral oil enemas ("at least" as needed). The patient has had fairly good results with Dulcolax suppositories and it may be reasonable to continue these on a somewhat scheduled basis. Slow advancement of diet over the next few weeks. Continue to increase fiber and fluid intake. Current Visit: Yes (3) Intractable abdominal pain Status: Acute Current Visit: Yes (4) CAD (coronary artery disease) Status: Chronic Current Visit: Yes (5) Cardiomyopathy Status: Chronic Current Visit: Yes (6) BPH (benign prostatic hyperplasia) Status: Chronic Current Visit: Yes (7) Depression Status: Chronic Current Visit: Yes (8) Abdominal aortic aneurysm (AAA) Status: Chronic Current Visit: Yes (9) Renal insufficiency Status: Chronic Current Visit: Yes (10) Right hemiparesis Status: Chronic Current Visit: Yes
--- NOTE | 2017-10-22 08:05 | Progress Note ---
<Ele Bowden - Last Filed: 10/22/17 08:03> Internal Medicine - PN: Subj *Date: 10/22/17 *Time: 08:03 Interval history: Pt has some BM's last night. His abdomen is twister tender but not as distended according to his . He is still requiring pain medication. Exam Vital signs and Labs for Last 24 Hours: Temp Pulse Resp BP Pulse Ox 97.9 F 83 16 152/78 91 L 10/22/17 07:40 10/22/17 07:40 10/22/17 07:40 10/22/17 07:40 10/22/17 07:40 Laboratory Results - last 24 hr 10/21/17 18:08: Urine Color Yellow, Urine Appearance Clear, Urine pH 5.5, Ur Specific [place] 1.010, Urine Protein Negative, Urine Glucose (UA) Negative, Urine Ketones Negative, Urine Blood Trace-i, Urine Nitrate Positive, Urine Bilirubin Negative, Urine Urobilinogen 0.2, Ur Leukocyte Esterase 1+ A, Urine RBC 5-10, Urine WBC 10-20 A, Ur Squamous Epith Cells None, Urine Bacteria Trace , Hyaline Casts Occ I & O for Last 24 hours: Intake & Output 10/19/17 10/20/17 10/21/17 10/22/17 11:59 11:59 11:59 11:59 Intake Total 240 / 240 2888 / 2888 Output Total 1400 / 1400 1100 / 1100 Balance -1160 / -1160 1788 / 1788 Weight 119 lb 4 oz 125 lb 7.088 oz - Constitutional no acute distress - *Routine Respiratory Exam Present: rhonchi - *Routine Cardiovascular Exam Present: RRR - *Routine Abdominal Exam Present: soft, normoactive bowel sounds, tenderness (diffuse), distended - *Routine Extremities Exam Present: edema Assessment and Plan (1) Obstipation Current visit: Yes Status: Acute Category: Medical Code(s): K59.00 - Constipation, unspecified (2) Chronic constipation Current visit: Yes Status: Chronic Category: Medical Code(s): K59.09 - Other constipation (3) Intractable abdominal pain Current visit: Yes Status: Acute Category: Medical Code(s): R10.9 - Unspecified abdominal pain (4) CAD (coronary artery disease) Current visit: Yes Status: Chronic Category: Medical Code(s): I25.10 - Atherosclerotic heart disease of [place] coronary artery without angina pectoris (5) Cardiomyopathy Current visit: Yes Status: Chronic Category: Medical Code(s): I42.9 - Cardiomyopathy, unspecified (6) BPH (benign prostatic hyperplasia) Current visit: Yes Status: Chronic Category: Medical Code(s): N40.0 - Benign prostatic hyperplasia without lower urinary tract symptoms (7) Depression Current visit: Yes Status: Chronic Category: Medical Code(s): F32.9 - Major depressive disorder, single episode, unspecified (8) Abdominal aortic aneurysm (AAA) Current visit: Yes Status: Chronic Category: Medical Code(s): I71.4 - Abdominal aortic aneurysm, without rupture (9) Renal insufficiency Current visit: Yes Status: Chronic Category: Medical Code(s): N28.9 - Disorder of kidney and ureter, unspecified (10) Right hemiparesis Current visit: Yes Status: Chronic Category: Medical Code(s): G81.91 - Hemiplegia, unspecified affecting right dominant side - Assessment and plan all Dx Assessment and Plan for all problems:: Will get repeat x-rays today. <Cruzito Simon - Last Filed: 10/22/17 08:23> Internal Medicine - PN: Subj *Date: 10/22/17 *Time: 08:21 Exam Vital signs and Labs for Last 24 Hours: Temp Pulse Resp BP Pulse Ox 97.9 F 83 16 152/78 91 L 10/22/17 07:40 10/22/17 07:40 10/22/17 07:40 10/22/17 07:40 10/22/17 07:40 Laboratory Results - last 24 hr 10/21/17 18:08: Urine Color Yellow, Urine Appearance Clear, Urine pH 5.5, Ur Specific [place] 1.010, Urine Protein Negative, Urine Glucose (UA) Negative, Urine Ketones Negative, Urine Blood Trace-i, Urine Nitrate Positive, Urine Bilirubin Negative, Urine Urobilinogen 0.2, Ur Leukocyte Esterase 1+ A, Urine RBC 5-10, Urine WBC 10-20 A, Ur Squamous Epith Cells None, Urine Bacteria Trace , Hyaline Casts Occ I & O for Last 24 hours: Intake & Output 10/19/17 10/20/17 10/21/17 10/22/17 11:59 11:59 11:59 11:59 Intake Total 240 / 240 2888 / 2888 Output Total 1400 / 1400 1100 / 1100 Balance -1160 / -1160 1788 / 1788 Weight 119 lb 4 oz 125 lb 7.088 oz Assessment and Plan (1) Obstipation Current visit: Yes Status: Acute Category: Medical Code(s): K59.00 - Constipation, unspecified (2) Chronic constipation Current visit: Yes Status: Chronic Category: Medical Code(s): K59.09 - Other constipation (3) Intractable abdominal pain Current visit: Yes Status: Acute Category: Medical Code(s): R10.9 - Unspecified abdominal pain (4) CAD (coronary artery disease) Current visit: Yes Status: Chronic Category: Medical Code(s): I25.10 - Atherosclerotic heart disease of [place] coronary artery without angina pectoris (5) Cardiomyopathy Current visit: Yes Status: Chronic Category: Medical Code(s): I42.9 - Cardiomyopathy, unspecified (6) BPH (benign prostatic hyperplasia) Current visit: Yes Status: Chronic Category: Medical Code(s): N40.0 - Benign prostatic hyperplasia without lower urinary tract symptoms (7) Depression Current visit: Yes Status: Chronic Category: Medical Code(s): F32.9 - Major depressive disorder, single episode, unspecified (8) Abdominal aortic aneurysm (AAA) Current visit: Yes Status: Chronic Category: Medical Code(s): I71.4 - Abdominal aortic aneurysm, without rupture (9) Renal insufficiency Current visit: Yes Status: Chronic Category: Medical Code(s): N28.9 - Disorder of kidney and ureter, unspecified (10) Right hemiparesis Current visit: Yes Status: Chronic Category: Medical Code(s): G81.91 - Hemiplegia, unspecified affecting right dominant side - Assessment and plan all Dx Assessment and Plan for all problems:: Patient seen and examined. Constipation seems to be resolving . Will repeat xray today.
--- NOTE | 2017-10-23 07:34 | Progress Note ---
Subjective Patient reports: no bowel movement Exam Vital signs and Labs for Last 24 Hours: Temp Pulse Resp BP Pulse Ox 97.0 F L 77 18 111/69 93 L 10/23/17 04:00 10/23/17 04:00 10/23/17 04:00 10/23/17 04:00 10/23/17 04:00 I & O for Last 24 hours: Intake & Output 10/20/17 10/21/17 10/22/17 10/23/17 11:59 11:59 11:59 11:59 Intake Total 240 / 240 2888 / 2888 2720 / 2720 Output Total 1400 / 1400 1100 / 1100 1450 / 1450 Balance -1160 / -1160 1788 / 1788 1270 / 1270 Weight 119 lb 4 oz 125 lb 7.088 oz 147 lb 11.355 oz Microbiology Reports for the Last 24 Hours: Microbiology 10/21/17 18:08 Urine,Catheterized Urine Culture - Preliminary NO GROWTH AFTER 24 HOURS - Constitutional no acute distress - *Routine Abdominal Exam Present: soft Comments: somewhat more distended Progress Note: A&P (1) Obstipation Status: Acute Current Visit: Yes (2) Chronic constipation Status: Chronic Assessment and plan: initial response with Dulc Supp...now with increasing distention and decreasing output. schedule Dulcolax suppositories and mineral oil enemas twice daily (no longer as needed) Milk and molasses enema 1 this morning Current Visit: Yes (3) Intractable abdominal pain Status: Acute Current Visit: Yes (4) CAD (coronary artery disease) Status: Chronic Current Visit: Yes (5) Cardiomyopathy Status: Chronic Current Visit: Yes (6) BPH (benign prostatic hyperplasia) Status: Chronic Current Visit: Yes (7) Depression Status: Chronic Current Visit: Yes (8) Abdominal aortic aneurysm (AAA) Status: Chronic Current Visit: Yes (9) Renal insufficiency Status: Chronic Current Visit: Yes (10) Right hemiparesis Status: Chronic Current Visit: Yes
--- NOTE | 2017-10-23 08:14 | Progress Note ---
<Ele Bowden - Last Filed: 10/23/17 08:13> Internal Medicine - PN: Subj *Date: 10/23/17 *Time: 08:13 Interval history: Patient looks better this morning. He states he still has diffuse abdominal pain. Did rest well last night. Exam Vital signs and Labs for Last 24 Hours: Temp Pulse Resp BP Pulse Ox 97.0 F L 77 18 111/69 93 L 10/23/17 04:00 10/23/17 04:00 10/23/17 04:00 10/23/17 04:00 10/23/17 04:00 I & O for Last 24 hours: Intake & Output 10/20/17 10/21/17 10/22/17 10/23/17 11:59 11:59 11:59 11:59 Intake Total 240 / 240 2888 / 2888 2720 / 2720 Output Total 1400 / 1400 1100 / 1100 1450 / 1450 Balance -1160 / -1160 1788 / 1788 1270 / 1270 Weight 119 lb 4 oz 125 lb 7.088 oz 147 lb 11.355 oz Microbiology Reports for the Last 24 Hours: Microbiology 10/21/17 18:08 Urine,Catheterized Urine Culture - Preliminary NO GROWTH AFTER 24 HOURS - Constitutional no acute distress - *Routine Respiratory Exam Present: CTA bilaterally - *Routine Cardiovascular Exam Present: RRR - *Routine Abdominal Exam Present: tenderness (diffuse, hypoactive BS), distended - *Routine Extremities Exam Absent: edema Assessment and Plan (1) Obstipation Current visit: Yes Status: Acute Category: Medical Code(s): K59.00 - Constipation, unspecified (2) Chronic constipation Current visit: Yes Status: Chronic Category: Medical Code(s): K59.09 - Other constipation (3) Intractable abdominal pain Current visit: Yes Status: Acute Category: Medical Code(s): R10.9 - Unspecified abdominal pain (4) CAD (coronary artery disease) Current visit: Yes Status: Chronic Category: Medical Code(s): I25.10 - Atherosclerotic heart disease of [place] coronary artery without angina pectoris (5) Cardiomyopathy Current visit: Yes Status: Chronic Category: Medical Code(s): I42.9 - Cardiomyopathy, unspecified (6) BPH (benign prostatic hyperplasia) Current visit: Yes Status: Chronic Category: Medical Code(s): N40.0 - Benign prostatic hyperplasia without lower urinary tract symptoms (7) Depression Current visit: Yes Status: Chronic Category: Medical Code(s): F32.9 - Major depressive disorder, single episode, unspecified (8) Abdominal aortic aneurysm (AAA) Current visit: Yes Status: Chronic Category: Medical Code(s): I71.4 - Abdominal aortic aneurysm, without rupture (9) Renal insufficiency Current visit: Yes Status: Chronic Category: Medical Code(s): N28.9 - Disorder of kidney and ureter, unspecified (10) Right hemiparesis Current visit: Yes Status: Chronic Category: Medical Code(s): G81.91 - Hemiplegia, unspecified affecting right dominant side - Assessment and plan all Dx Assessment and Plan for all problems:: Dr. Casillas would like to schedule Dulcolax suppositories and mineral oil enemas twice daily and will give a milk and molasses enema 1 this morning. <Cruzito Simon - Last Filed: 10/23/17 08:22> Internal Medicine - PN: Subj *Date: 10/23/17 *Time: 08:21 Exam Vital signs and Labs for Last 24 Hours: Temp Pulse Resp BP Pulse Ox 97.8 F 77 20 129/77 94 L 10/23/17 08:00 10/23/17 08:00 10/23/17 08:00 10/23/17 08:00 10/23/17 08:00 I & O for Last 24 hours: Intake & Output 10/20/17 10/21/17 10/22/17 10/23/17 11:59 11:59 11:59 11:59 Intake Total 240 / 240 2888 / 2888 3320 / 3320 Output Total 1400 / 1400 1100 / 1100 1450 / 1450 Balance -1160 / -1160 1788 / 1788 1870 / 1870 Weight 119 lb 4 oz 125 lb 7.088 oz 147 lb 11.355 oz Microbiology Reports for the Last 24 Hours: Microbiology 10/21/17 18:08 Urine,Catheterized Urine Culture - Preliminary NO GROWTH AFTER 24 HOURS Assessment and Plan (1) Obstipation Current visit: Yes Status: Acute Category: Medical Code(s): K59.00 - Constipation, unspecified (2) Chronic constipation Current visit: Yes Status: Chronic Category: Medical Code(s): K59.09 - Other constipation (3) Intractable abdominal pain Current visit: Yes Status: Acute Category: Medical Code(s): R10.9 - Unspecified abdominal pain (4) CAD (coronary artery disease) Current visit: Yes Status: Chronic Category: Medical Code(s): I25.10 - Atherosclerotic heart disease of [place] coronary artery without angina pectoris (5) Cardiomyopathy Current visit: Yes Status: Chronic Category: Medical Code(s): I42.9 - Cardiomyopathy, unspecified (6) BPH (benign prostatic hyperplasia) Current visit: Yes Status: Chronic Category: Medical Code(s): N40.0 - Benign prostatic hyperplasia without lower urinary tract symptoms (7) Depression Current visit: Yes Status: Chronic Category: Medical Code(s): F32.9 - Major depressive disorder, single episode, unspecified (8) Abdominal aortic aneurysm (AAA) Current visit: Yes Status: Chronic Category: Medical Code(s): I71.4 - Abdominal aortic aneurysm, without rupture (9) Renal insufficiency Current visit: Yes Status: Chronic Category: Medical Code(s): N28.9 - Disorder of kidney and ureter, unspecified (10) Right hemiparesis Current visit: Yes Status: Chronic Category: Medical Code(s): G81.91 - Hemiplegia, unspecified affecting right dominant side - Assessment and plan all Dx Assessment and Plan for all problems:: Patient seen and examined. On my exam, he denies any pain. Abdomen is more distended this AM with only mild right sided tenderness. Per Dr. Casillas's note, will proceed with enemas today.
--- NOTE | 2017-10-24 08:53 | Progress Note ---
Internal Medicine - PN: Subj *Date: 10/24/17 *Time: 08:49 Interval history: Family notes he did not get much sleep due to receiving enema at 2300. Staff reports having 4 moderate stools with more firm consistency through the night. He seemed to tolerate the enema w/o much discomfort. Noted with scrotal edema Exam Vital signs and Labs for Last 24 Hours: Temp Pulse Resp BP Pulse Ox 97.3 F L 60 16 176/80 94 L 10/24/17 07:45 10/24/17 07:45 10/24/17 07:45 10/24/17 07:45 10/24/17 07:45 I & O for Last 24 hours: Intake & Output 10/21/17 10/22/17 10/23/17 10/24/17 11:59 11:59 11:59 11:59 Intake Total 240 / 240 2888 / 2888 3320 / 3320 960 / 960 Output Total 1400 / 1400 1100 / 1100 1450 / 1450 900 / 900 Balance -1160 / -1160 1788 / 1788 1870 / 1870 60 / 60 Weight 119 lb 4 oz 125 lb 7.088 oz 147 lb 11.355 oz 151 lb 3.794 oz Microbiology Reports for the Last 24 Hours: Microbiology 10/21/17 18:08 Urine,Catheterized Urine Culture - Final NO GROWTH AFTER 48 HOURS - Constitutional Comments: sleeping, arouses easily - *Routine Abdominal Exam Comments: soft, less distended,NT - *Routine Extremities Exam Comments: trace edema Assessment and Plan (1) Obstipation Current visit: Yes Status: Acute Category: Medical Code(s): K59.00 - Constipation, unspecified (2) Chronic constipation Current visit: Yes Status: Chronic Category: Medical Code(s): K59.09 - Other constipation (3) Intractable abdominal pain Current visit: Yes Status: Acute Category: Medical Code(s): R10.9 - Unspecified abdominal pain (4) CAD (coronary artery disease) Current visit: Yes Status: Chronic Category: Medical Code(s): I25.10 - Atherosclerotic heart disease of [place] coronary artery without angina pectoris (5) Cardiomyopathy Current visit: Yes Status: Chronic Category: Medical Code(s): I42.9 - Cardiomyopathy, unspecified (6) BPH (benign prostatic hyperplasia) Current visit: Yes Status: Chronic Category: Medical Code(s): N40.0 - Benign prostatic hyperplasia without lower urinary tract symptoms (7) Depression Current visit: Yes Status: Chronic Category: Medical Code(s): F32.9 - Major depressive disorder, single episode, unspecified (8) Abdominal aortic aneurysm (AAA) Current visit: Yes Status: Chronic Category: Medical Code(s): I71.4 - Abdominal aortic aneurysm, without rupture (9) Renal insufficiency Current visit: Yes Status: Chronic Category: Medical Code(s): N28.9 - Disorder of kidney and ureter, unspecified (10) Right hemiparesis Current visit: Yes Status: Chronic Category: Medical Code(s): G81.91 - Hemiplegia, unspecified affecting right dominant side - Assessment and plan all Dx Assessment and Plan for all problems:: Appears to be making progress. Will continue current bowel regimen. REsume his Torsemide. Repeat labs in AM.
--- NOTE | 2017-10-24 08:57 | Progress Note ---
Subjective Patient reports: bowel movement (multiple BMs s/p M&M enema) Exam Vital signs and Labs for Last 24 Hours: Temp Pulse Resp BP Pulse Ox 97.3 F L 60 16 176/80 94 L 10/24/17 07:45 10/24/17 07:45 10/24/17 07:45 10/24/17 07:45 10/24/17 07:45 I & O for Last 24 hours: Intake & Output 10/21/17 10/22/17 10/23/17 10/24/17 11:59 11:59 11:59 11:59 Intake Total 240 / 240 2888 / 2888 3320 / 3320 960 / 960 Output Total 1400 / 1400 1100 / 1100 1450 / 1450 900 / 900 Balance -1160 / -1160 1788 / 1788 1870 / 1870 60 / 60 Weight 119 lb 4 oz 125 lb 7.088 oz 147 lb 11.355 oz 151 lb 3.794 oz Microbiology Reports for the Last 24 Hours: Microbiology 10/21/17 18:08 Urine,Catheterized Urine Culture - Final NO GROWTH AFTER 48 HOURS - Constitutional no acute distress - *Routine Respiratory Exam Absent: respiratory distress - *Routine Abdominal Exam Present: soft Comments: much less distended Progress Note: A&P (1) Obstipation Status: Acute Current Visit: Yes (2) Chronic constipation Status: Chronic Assessment and plan: Good response to M&M enema and scheduled Dulcolax suppositories/mineral oil enemas. Continue current therapy Current Visit: Yes (3) Intractable abdominal pain Status: Acute Current Visit: Yes (4) CAD (coronary artery disease) Status: Chronic Current Visit: Yes (5) Cardiomyopathy Status: Chronic Current Visit: Yes (6) BPH (benign prostatic hyperplasia) Status: Chronic Current Visit: Yes (7) Depression Status: Chronic Current Visit: Yes (8) Abdominal aortic aneurysm (AAA) Status: Chronic Current Visit: Yes (9) Renal insufficiency Status: Chronic Current Visit: Yes (10) Right hemiparesis Status: Chronic Current Visit: Yes
--- NOTE | 2017-10-25 06:42 | Progress Note ---
Subjective Patient reports: bowel movement (some intermittent abd pain over the last 24 hours) Exam Vital signs and Labs for Last 24 Hours: Temp Pulse Resp BP Pulse Ox 97.7 F 77 16 123/71 96 10/25/17 04:00 10/25/17 04:00 10/25/17 04:00 10/25/17 04:00 10/25/17 04:00 I & O for Last 24 hours: Intake & Output 10/22/17 10/23/17 10/24/17 10/25/17 11:59 11:59 11:59 11:59 Intake Total 2888 / 2888 3320 / 3320 960 / 960 2674 / 2674 Output Total 1100 / 1100 1450 / 1450 900 / 900 2100 / 2100 Balance 1788 / 1788 1870 / 1870 60 / 60 574 / 574 Weight 125 lb 7.088 oz 147 lb 11.355 oz 151 lb 3.794 oz - Constitutional no acute distress - *Routine Abdominal Exam Present: soft (no significant increased distention) Progress Note: A&P (1) Obstipation Status: Acute Current Visit: Yes (2) Chronic constipation Status: Chronic Assessment and plan: continuing to have bowel function with mineral oil enemas and dulcolax suppositories If increased distention or if current treatment no longer remains effective...consider repeating M&M enema. Otherwise, continue current regimen for now. Current Visit: Yes (3) Intractable abdominal pain Status: Acute Current Visit: Yes (4) CAD (coronary artery disease) Status: Chronic Current Visit: Yes (5) Cardiomyopathy Status: Chronic Current Visit: Yes (6) BPH (benign prostatic hyperplasia) Status: Chronic Current Visit: Yes (7) Depression Status: Chronic Current Visit: Yes (8) Abdominal aortic aneurysm (AAA) Status: Chronic Current Visit: Yes (9) Renal insufficiency Status: Chronic Current Visit: Yes (10) Right hemiparesis Status: Chronic Current Visit: Yes
--- NOTE | 2017-10-25 08:36 | Progress Note ---
Internal Medicine - PN: Subj *Date: 10/25/17 *Time: 12:07 Interval history: He had some pain yesterday during the day and required Morphine. Family states he did not sleep as well last night. Resting quietly at present. Exam Vital signs and Labs for Last 24 Hours: Temp Pulse Resp BP Pulse Ox 98.8 F 72 16 126/71 92 L 10/25/17 07:33 10/25/17 07:33 10/25/17 07:33 10/25/17 07:33 10/25/17 07:33 Laboratory Results - last 24 hr 10/25/17 06:10: Sodium 139, Potassium 3.0 L, Chloride 103, Carbon Dioxide 29, Anion Gap 10.0, BUN 22 H, Creatinine 1.26, Estimated Creat Clear 45, Estimated GFR 55 L, Est GFR ( Amer) 66, Glucose 81 I & O for Last 24 hours: Intake & Output 10/22/17 10/23/17 10/24/17 10/25/17 11:59 11:59 11:59 11:59 Intake Total 2888 / 2888 3320 / 3320 960 / 960 2914 / 2914 Output Total 1100 / 1100 1450 / 1450 900 / 900 2100 / 2100 Balance 1788 / 1788 1870 / 1870 60 / 60 814 / 814 Weight 125 lb 7.088 oz 147 lb 11.355 oz 151 lb 3.794 oz 153 lb 10.595 oz - *Routine Respiratory Exam Present: CTA bilaterally - *Routine Cardiovascular Exam Present: RRR - *Routine Abdominal Exam Present: soft. Absent: distended - *Routine Extremities Exam Comments: minimal edema Assessment and Plan (1) Obstipation Current visit: Yes Status: Acute Category: Medical Code(s): K59.00 - Constipation, unspecified (2) Chronic constipation Current visit: Yes Status: Chronic Category: Medical Code(s): K59.09 - Other constipation (3) Intractable abdominal pain Current visit: Yes Status: Acute Category: Medical Code(s): R10.9 - Unspecified abdominal pain (4) CAD (coronary artery disease) Current visit: Yes Status: Chronic Category: Medical Code(s): I25.10 - Atherosclerotic heart disease of [place] coronary artery without angina pectoris (5) Cardiomyopathy Current visit: Yes Status: Chronic Category: Medical Code(s): I42.9 - Cardiomyopathy, unspecified (6) BPH (benign prostatic hyperplasia) Current visit: Yes Status: Chronic Category: Medical Code(s): N40.0 - Benign prostatic hyperplasia without lower urinary tract symptoms (7) Depression Current visit: Yes Status: Chronic Category: Medical Code(s): F32.9 - Major depressive disorder, single episode, unspecified (8) Abdominal aortic aneurysm (AAA) Current visit: Yes Status: Chronic Category: Medical Code(s): I71.4 - Abdominal aortic aneurysm, without rupture (9) Renal insufficiency Current visit: Yes Status: Chronic Category: Medical Code(s): N28.9 - Disorder of kidney and ureter, unspecified (10) Right hemiparesis Current visit: Yes Status: Chronic Category: Medical Code(s): G81.91 - Hemiplegia, unspecified affecting right dominant side - Assessment and plan all Dx Assessment and Plan for all problems:: Repeat KUB today. Add KCl to IV fluids. Will hold enemas and suppositories pending results of repeat KUB.
--- NOTE | 2017-10-26 08:00 | Progress Note ---
<Angelina Randolph - Last Filed: 10/26/17 07:57> Internal Medicine - PN: Subj *Date: 10/26/17 *Time: 07:57 Interval history: Per son: rested better last night. Has had several stools. Eating minimally. Drink GoLYTELY without any problems. Patient indicates that he is comfortable. Morley catheter patent and draining. Stool this morning noted to be black and liquid Exam Vital signs and Labs for Last 24 Hours: Temp Pulse Resp BP Pulse Ox 98.8 F 93 H 18 135/76 97 10/26/17 07:37 10/26/17 07:37 10/26/17 07:37 10/26/17 07:37 10/26/17 07:37 I & O for Last 24 hours: Intake & Output 10/23/17 10/24/17 10/25/17 10/26/17 11:59 11:59 11:59 11:59 Intake Total 3320 / 3320 960 / 960 2914 / 2914 1933 / 1933 Output Total 1450 / 1450 900 / 900 2100 / 2100 2024 / 2024 Balance 1870 / 1870 60 / 60 814 / 814 -92 / -92 Weight 147 lb 11.355 oz 151 lb 3.794 oz 153 lb 10.595 oz 158 lb 15.253 oz - Constitutional no acute distress - *Routine Respiratory Exam Present: CTA bilaterally (Anteriorly and posteriorly) - *Routine Cardiovascular Exam Present: RRR - *Routine Abdominal Exam Present: soft. Absent: tenderness Comments: Hyperactive bowel sounds; slightly distended - *Routine Extremities Exam Comments: Edema right lower extremity; scrotal edema noted. - *Routine Neurological Exam Present: alert Communicates by nodding his head yes and no. Very alert this morning. Assessment and Plan (1) Obstipation Current visit: Yes Status: Acute Category: Medical Code(s): K59.00 - Constipation, unspecified (2) Chronic constipation Current visit: Yes Status: Chronic Category: Medical Code(s): K59.09 - Other constipation (3) Intractable abdominal pain Current visit: Yes Status: Acute Category: Medical Code(s): R10.9 - Unspecified abdominal pain (4) CAD (coronary artery disease) Current visit: Yes Status: Chronic Category: Medical Code(s): I25.10 - Atherosclerotic heart disease of [place] coronary artery without angina pectoris (5) Cardiomyopathy Current visit: Yes Status: Chronic Category: Medical Code(s): I42.9 - Cardiomyopathy, unspecified (6) BPH (benign prostatic hyperplasia) Current visit: Yes Status: Chronic Category: Medical Code(s): N40.0 - Benign prostatic hyperplasia without lower urinary tract symptoms (7) Depression Current visit: Yes Status: Chronic Category: Medical Code(s): F32.9 - Major depressive disorder, single episode, unspecified (8) Abdominal aortic aneurysm (AAA) Current visit: Yes Status: Chronic Category: Medical Code(s): I71.4 - Abdominal aortic aneurysm, without rupture (9) Renal insufficiency Current visit: Yes Status: Chronic Category: Medical Code(s): N28.9 - Disorder of kidney and ureter, unspecified (10) Right hemiparesis Current visit: Yes Status: Chronic Category: Medical Code(s): G81.91 - Hemiplegia, unspecified affecting right dominant side - Assessment and plan all Dx Assessment and Plan for all problems:: Continue with current bowel regime as per Dr. Simon and Dr. Bernal. <Cruzito Simon - Last Filed: 10/27/17 08:02> Internal Medicine - PN: Subj *Date: 10/27/17 *Time: 08:01 Exam Vital signs and Labs for Last 24 Hours: Temp Pulse Resp BP Pulse Ox 97.4 F L 63 18 141/69 92 L 10/27/17 07:17 10/27/17 07:17 10/27/17 07:17 10/27/17 07:17 10/27/17 07:17 I & O for Last 24 hours: Intake & Output 10/24/17 10/25/17 10/26/17 10/27/17 11:59 11:59 11:59 11:59 Intake Total 960 / 960 2914 / 2914 2293 / 2293 3728 / 3728 Output Total 900 / 900 2099 Balance 60 / 60 814 / 814 268 / 268 1628 / 1628 Weight 151 lb 3.794 oz 153 lb 10.595 oz 158 lb 15.253 oz 154 lb 8 oz Assessment and Plan (1) Obstipation Current visit: Yes Status: Acute Category: Medical Code(s): K59.00 - Constipation, unspecified (2) Chronic constipation Current visit: Yes Status: Chronic Category: Medical Code(s): K59.09 - Other constipation (3) Intractable abdominal pain Current visit: Yes Status: Acute Category: Medical Code(s): R10.9 - Unspecified abdominal pain (4) CAD (coronary artery disease) Current visit: Yes Status: Chronic Category: Medical Code(s): I25.10 - Atherosclerotic heart disease of [place] coronary artery without angina pectoris (5) Cardiomyopathy Current visit: Yes Status: Chronic Category: Medical Code(s): I42.9 - Cardiomyopathy, unspecified (6) BPH (benign prostatic hyperplasia) Current visit: Yes Status: Chronic Category: Medical Code(s): N40.0 - Benign prostatic hyperplasia without lower urinary tract symptoms (7) Depression Current visit: Yes Status: Chronic Category: Medical Code(s): F32.9 - Major depressive disorder, single episode, unspecified (8) Abdominal aortic aneurysm (AAA) Current visit: Yes Status: Chronic Category: Medical Code(s): I71.4 - Abdominal aortic aneurysm, without rupture (9) Renal insufficiency Current visit: Yes Status: Chronic Category: Medical Code(s): N28.9 - Disorder of kidney and ureter, unspecified (10) Right hemiparesis Current visit: Yes Status: Chronic Category: Medical Code(s): G81.91 - Hemiplegia, unspecified affecting right dominant side - Assessment and plan all Dx Assessment and Plan for all problems:: Patient seen and examined. Will request GI consult with Dr. Canas today.
--- NOTE | 2017-10-26 08:03 | Progress Note ---
Subjective Patient reports: no new complaints Exam Vital signs and Labs for Last 24 Hours: Temp Pulse Resp BP Pulse Ox 98.8 F 93 H 18 135/76 97 10/26/17 07:37 10/26/17 07:37 10/26/17 07:37 10/26/17 07:37 10/26/17 07:37 I & O for Last 24 hours: Intake & Output 10/23/17 10/24/17 10/25/17 10/26/17 11:59 11:59 11:59 11:59 Intake Total 3320 / 3320 960 / 960 2914 / 2914 1933 / 1933 Output Total 1450 / 1450 900 / 900 2100 / 2100 2024 / 2024 Balance 1870 / 1870 60 / 60 814 / 814 -92 / -92 Weight 147 lb 11.355 oz 151 lb 3.794 oz 153 lb 10.595 oz 158 lb 15.253 oz - *Routine Abdominal Exam Present: distended. Absent: tenderness Progress Note: A&P (1) Obstipation Status: Acute Assessment and plan: Bowel regimen. Current Visit: Yes (2) Chronic constipation Status: Chronic Current Visit: Yes (3) Intractable abdominal pain Status: Acute Current Visit: Yes (4) CAD (coronary artery disease) Status: Chronic Current Visit: Yes (5) Cardiomyopathy Status: Chronic Current Visit: Yes (6) BPH (benign prostatic hyperplasia) Status: Chronic Current Visit: Yes (7) Depression Status: Chronic Current Visit: Yes (8) Abdominal aortic aneurysm (AAA) Status: Chronic Current Visit: Yes (9) Renal insufficiency Status: Chronic Current Visit: Yes (10) Right hemiparesis Status: Chronic Current Visit: Yes
--- NOTE | 2017-10-26 10:19 | Consult Report ---
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 He has been experiencing abdominal pain for the past 3 months associated with constipation. He usually has a bowel movement every 3-5 days. He has been getting morphine for abdominal pain and his last bowel movement was 5 days prior to admission. He has had no vomiting or coffee-ground emesis and no bleeding per rectum or diarrhea. Has no fever or chills. His has had him on full liquids and clear liquids. She puries all of his food. The abdominal pain has increased over the last week. Hospice has tried to intervene and have given him lactulose, suppositories and several enemas. They have also removed fecal impactions. He has continued to have abdominal pain and required pain medicine about every 2 hours. Thus they brought him to the emergency room for further studies. With evaluation in the emergency room CT scan revealed large amounts of stool in the large colon with a huge fecal impaction at the sigmoid colon distended to 11cm. Thus he was admitted with surgical consultation, however, no intervention was recommended. The pt has been receiving enemas and "brown cow" molassas/MOM over the past several days with improvement. KUB from 10/25 showed continued large amount of stool throughout the colon with large amount at rectal vault but with progressive proximal stool accumulation. The pt continues to receive morphine. [facility] History Medical History: Reports:: Aneurysm, Atherosclerotic Heart Disease, BPH, Cardiomyopathy, Congestive Heart Failure, Coronary Artery Disease, Cerebrovascular Accident, Depression, Hypertension, Myocardial Infarction, Renal Disease, Ulcer Denies:: Diabetes Mellitus Type 1, Diabetes Mellitus Type 2 Other Medical History: Reports: Hypothyroidism, Thyroid Disease, Other (Chronic constipation: A phasic) Laterality Cases: Left: Other Amputation: No Fractures: No - *Social History Educational Level: Completed High School Smoking Status: Never smoker Alcohol Intake: never Occupational Status: disabled Housing: house Household Members: spouse, family - Psychiatric History Expresses thoughts of harming self/others: None Suicide Plan Description: No Plan Pschychiatric History:: Reports:: Depression *Family Hx:: Coronary Artery Disease, Diabetes Review of Systems - Constitutional Reports fatigue, Reports malaise - *Gastrointestinal Reports abdominal pain - *Neurologic Denies headache(s) Meds Home Medications Medication Instructions Recorded Confirmed Type Amlodipine Besylate [Amlodipine 10 mg PO DAILY 10/20/17 10/20/17 History 10mg Tab] Aspirin [Aspirin 81mg EC Tab] 81 mg PO DAILY 10/20/17 10/20/17 History Bisacodyl [Dulcolax 10mg Supp] 10 mg RC DAILYP PRN 10/20/17 10/20/17 History Ciprofloxacin HCl [Cipro 500mg Tab] 500 mg PO BID 10/20/17 10/20/17 History Hydralazine HCl 50 mg PO BID 10/20/17 10/20/17 History Hydromorphone HCl [Dilaudid 4mg 2 - 4 mg PO Q4HP PRN 10/20/17 10/21/17 History Tab] Hyoscyamine Sulfate [Levsin 0.125 mg PO Q4HP PRN 10/20/17 10/21/17 History 0.125mg tablet] Isosorbide Dinitrate [Isordil 20mg 40 mg PO TID 10/20/17 10/20/17 History tablet] L.acidoph,Paracasei, B.lactis 1 each PO DAILY 10/20/17 10/20/17 History [Probiotic] LORazepam [Ativan 0.5mg tablet] 0.5 mg PO Q6 MDD 2mg 10/20/17 10/20/17 History Levothyroxine Sodium 50 mcg PO DAILY 10/20/17 10/20/17 History [Levothyroxine 50mcg (0.05mg) Tab] Metoclopramide HCl [Reglan 5mg 5 mg PO TID 10/20/17 10/20/17 History Tablet] Morphine Sulfate [Morphine Sulfate 10 - 20 mg PO Q4-6H PRN MDD 80mg 10/20/1711/04 History 10mg/5ml Oral Soln] Nitroglycerin [Nitrostat 0.4mg SL 0.4 mg SL NEEDED PRN 10/20/17 10/20/17 History Tablet] Sennosides [Senna] 2 tab PO BID 10/20/17 10/21/17 History Simethicone [Phazyme] 60 mg PO TID 10/20/17 10/20/17 History Torsemide [Demadex] 20 mg PO DAILY PRN 10/20/17 10/20/17 History hydrOXYzine HCl [Hydroxyzine HCl] 10 mg PO Q4-6H 10/20/17 10/20/17 History metroNIDAZOLE [metroNIDAZOLE 500mg 500 mg PO TIDWM 10/20/17 10/20/17 History Tablet] Allergies Allergy/AdvReac Type Severity Reaction Status Date / Time No Known Allergies Allergy Unverified 07/07/17 15:03 Exam Vital signs and Labs for Last 24 Hours: Temp Pulse Resp BP Pulse Ox 98.8 F 93 H 18 135/76 97 10/26/17 07:37 10/26/17 07:37 10/26/17 07:37 10/26/17 07:37 10/26/17 07:37 I & O for Last 24 hours: Intake & Output 10/23/17 10/24/17 10/25/17 10/26/17 23:59 23:59 23:59 23:59 Intake Total 2600 / 2600 580 / 580 3354 / 3354 1513 / 1513 Output Total 650 / 650 1200 / 1200 2025 / 2025 1400 / 1400 Balance 1950 / 1950 -620 / -620 1329 / 1329 113 / 113 Weight 147 lb 11.355 oz 151 lb 3.794 oz 153 lb 10.595 oz 158 lb 15.253 oz - *Routine Abdominal Exam Present: soft, normoactive bowel sounds Internal Medicine - CN: Reslt - Labs CBC & Chem 7: 10/21/17 06:10 10/25/17 06:10 Assessment and Plan (1) Obstipation Current visit: Yes Status: Acute Category: Medical Code(s): K59.00 - Constipation, unspecified (2) Chronic constipation Current visit: Yes Status: Chronic Category: Medical Code(s): K59.09 - Other constipation (3) Intractable abdominal pain Current visit: Yes Status: Acute Category: Medical Code(s): R10.9 - Unspecified abdominal pain (4) CAD (coronary artery disease) Current visit: Yes Status: Chronic Category: Medical Code(s): I25.10 - Atherosclerotic heart disease of [place] coronary artery without angina pectoris (5) Cardiomyopathy Current visit: Yes Status: Chronic Category: Medical Code(s): I42.9 - Cardiomyopathy, unspecified (6) BPH (benign prostatic hyperplasia) Current visit: Yes Status: Chronic Category: Medical Code(s): N40.0 - Benign prostatic hyperplasia without lower urinary tract symptoms (7) Depression Current visit: Yes Status: Chronic Category: Medical Code(s): F32.9 - Major depressive disorder, single episode, unspecified (8) Abdominal aortic aneurysm (AAA) Current visit: Yes Status: Chronic Category: Medical Code(s): I71.4 - Abdominal aortic aneurysm, without rupture (9) Renal insufficiency Current visit: Yes Status: Chronic Category: Medical Code(s): N28.9 - Disorder of kidney and ureter, unspecified (10) Right hemiparesis Current visit: Yes Status: Chronic Category: Medical Code(s): G81.91 - Hemiplegia, unspecified affecting right dominant side - Assessment and plan all Dx Assessment and Plan for all problems:: Constipation/Obstipation The patient is a hospice patient and apparently has been declining rapidly per his . She would like for him to be made comfortable and return home. He does require Morphine on a regular basis due to chronic pain, however, this exacerbates his constipation and seems to lead to severe fecal impaction on a regular basis. I have contacted the pharmacy and asked if OIC medications such as Movantik or Relistor could be obtianed for the pt but was told they do not carry them here in the hospital. I would recommend the pt be discharged with one of these options such as Movantik 25mg daily to help oppose the ongoing effects of narcotics which I realize he will need. Given his condition and recent [place]/CHF I would not recommend Neostigmine at this time. Continue with enemas and oral laxatives as well as liquid/soft diet and comfort measures. <Familia Canas - Last Filed: 10/26/17 15:44> *History of present illness: I suspect that this represents chronic colonic ileus/[place]'s. I would avoid opiates altogether. Based upon his functional status and comorbidities I would be somewhat opposed to doing aggressive measures and hopefully family does agree. I would still not be opposed to using neostigmine if necessitated even with his cardiac status because of the potential risk of colonic diameter increasing further. I would avoid lactulose which may increased gas production. I would use stimulant laxatives including glycerin suppositories or Dulcolax suppositories along with enemas from below. As long as the patient remains on telemetry, neostigmine can be given with monitoring if this progresses. I do state this given the potential risk of increased colonic diameter may certainly outweigh any potential cardiac risk. A rectal tube could be placed if necessitated but would start with above measures first. Decompressive colonoscopy if gets acutely worse. Exam Vital signs and Labs for Last 24 Hours: Temp Pulse Resp BP Pulse Ox 98.8 F 93 H 18 135/76 97 10/26/17 07:37 10/26/17 07:37 10/26/17 07:37 10/26/17 07:37 10/26/17 07:37 I & O for Last 24 hours: Intake & Output 10/23/17 10/24/17 10/25/17 10/26/17 23:59 23:59 23:59 23:59 Intake Total 2600 / 2600 580 / 580 3354 / 3354 3146 / 3146 Output Total 650 / 650 1200 / 1200 5 / 2024 1400 / 1400 Balance 1950 / 1950 -620 / -620 1329 / 1329 1746 / 1746 Weight 67 kg 68.6 kg 69.7 kg 72.1 kg Internal Medicine - CN: Reslt - Labs CBC & Chem 7: 10/21/17 06:10 10/25/17 06:10 Assessment and Plan (1) Obstipation Current visit: Yes Status: Acute Category: Medical Code(s): K59.00 - Constipation, unspecified (2) Chronic constipation Current visit: Yes Status: Chronic Category: Medical Code(s): K59.09 - Other constipation (3) Intractable abdominal pain Current visit: Yes Status: Acute Category: Medical Code(s): R10.9 - Unspecified abdominal pain (4) CAD (coronary artery disease) Current visit: Yes Status: Chronic Category: Medical Code(s): I25.10 - Atherosclerotic heart disease of [place] coronary artery without angina pectoris (5) Cardiomyopathy Current visit: Yes Status: Chronic Category: Medical Code(s): I42.9 - Cardiomyopathy, unspecified (6) BPH (benign prostatic hyperplasia) Current visit: Yes Status: Chronic Category: Medical Code(s): N40.0 - Benign prostatic hyperplasia without lower urinary tract symptoms (7) Depression Current visit: Yes Status: Chronic Category: Medical Code(s): F32.9 - Major depressive disorder, single episode, unspecified (8) Abdominal aortic aneurysm (AAA) Current visit: Yes Status: Chronic Category: Medical Code(s): I71.4 - Abdominal aortic aneurysm, without rupture (9) Renal insufficiency Current visit: Yes Status: Chronic Category: Medical Code(s): N28.9 - Disorder of kidney and ureter, unspecified (10) Right hemiparesis Current visit: Yes Status: Chronic Category: Medical Code(s): G81.91 - Hemiplegia, unspecified affecting right dominant side
--- NOTE | 2017-10-27 07:16 | Progress Note ---
Subjective Patient reports: no new complaints Narrative: Patient had several stools yesterday and through the evening. Was given milk of molasses enema yesterday. Exam Vital signs and Labs for Last 24 Hours: Temp Pulse Resp BP Pulse Ox 98.5 F 66 18 139/80 92 L 10/27/17 04:15 10/27/17 04:15 10/27/17 04:15 10/27/17 04:15 10/27/17 04:15 I & O for Last 24 hours: Intake & Output 10/24/17 10/25/17 10/26/17 10/27/17 11:59 11:59 11:59 11:59 Intake Total 960 / 960 2914 / 2914 2293 / 2293 3668 / 3668 Output Total 900 / 900 2099 / 2099 2024 / 2024 2099 / 2099 Balance 60 / 60 814 / 814 268 / 268 1568 / 1568 Weight 151 lb 3.794 oz 153 lb 10.595 oz 158 lb 15.253 oz 154 lb 8 oz - *Routine Abdominal Exam Comments: Abdomen is less distended. No tenderness Progress Note: A&P (1) Obstipation Status: Acute Current Visit: Yes (2) Chronic constipation Status: Chronic Assessment and plan: Continue bowel regimen. Gastroenterology recommendations noted and appreciated. Current Visit: Yes (3) Intractable abdominal pain Status: Acute Current Visit: Yes (4) CAD (coronary artery disease) Status: Chronic Current Visit: Yes (5) Cardiomyopathy Status: Chronic Current Visit: Yes (6) BPH (benign prostatic hyperplasia) Status: Chronic Current Visit: Yes (7) Depression Status: Chronic Current Visit: Yes (8) Abdominal aortic aneurysm (AAA) Status: Chronic Current Visit: Yes (9) Renal insufficiency Status: Chronic Current Visit: Yes (10) Right hemiparesis Status: Chronic Current Visit: Yes
--- NOTE | 2017-10-27 07:58 | Progress Note ---
<Angelina Randolph - Last Filed: 10/27/17 07:55> Internal Medicine - PN: Subj *Date: 10/27/17 *Time: 07:55 Interval history: Per son: Patient slept well last night. He had a large soft stool in the p.m. He is eating oatmeal for breakfast for the first time in a long time. He seems less distended to the son. Patient denies pain. Dr. Bernal and Dr. Canas notes reviewed. Exam Vital signs and Labs for Last 24 Hours: Temp Pulse Resp BP Pulse Ox 97.4 F L 63 18 141/69 92 L 10/27/17 07:17 10/27/17 07:17 10/27/17 07:17 10/27/17 07:17 10/27/17 07:17 I & O for Last 24 hours: Intake & Output 10/24/17 10/25/17 10/26/17 10/27/17 11:59 11:59 11:59 11:59 Intake Total 960 / 960 2914 / 2914 2293 / 2293 3728 / 3728 Output Total 900 / 900 2100 / 2100 2024 / 2024 2099 / 2099 Balance 60 / 60 814 / 814 268 / 268 1628 / 1628 Weight 151 lb 3.794 oz 153 lb 10.595 oz 158 lb 15.253 oz 154 lb 8 oz - Constitutional no acute distress Comments: Awake and very alert. Communicates with yes and no. Being fed his breakfast. - *Routine Respiratory Exam Present: CTA bilaterally - *Routine Cardiovascular Exam Present: RRR - *Routine Abdominal Exam Present: soft, normoactive bowel sounds, distended. Absent: tenderness - *Routine Extremities Exam Comments: Right leg edema no left leg edema - *Routine Neurological Exam Present: alert Assessment and Plan (1) Obstipation Current visit: Yes Status: Acute Category: Medical Code(s): K59.00 - Constipation, unspecified (2) Chronic constipation Current visit: Yes Status: Chronic Category: Medical Code(s): K59.09 - Other constipation (3) Intractable abdominal pain Current visit: Yes Status: Acute Category: Medical Code(s): R10.9 - Unspecified abdominal pain (4) CAD (coronary artery disease) Current visit: Yes Status: Chronic Category: Medical Code(s): I25.10 - Atherosclerotic heart disease of [place] coronary artery without angina pectoris (5) Cardiomyopathy Current visit: Yes Status: Chronic Category: Medical Code(s): I42.9 - Cardiomyopathy, unspecified (6) BPH (benign prostatic hyperplasia) Current visit: Yes Status: Chronic Category: Medical Code(s): N40.0 - Benign prostatic hyperplasia without lower urinary tract symptoms (7) Depression Current visit: Yes Status: Chronic Category: Medical Code(s): F32.9 - Major depressive disorder, single episode, unspecified (8) Abdominal aortic aneurysm (AAA) Current visit: Yes Status: Chronic Category: Medical Code(s): I71.4 - Abdominal aortic aneurysm, without rupture (9) Renal insufficiency Current visit: Yes Status: Chronic Category: Medical Code(s): N28.9 - Disorder of kidney and ureter, unspecified (10) Right hemiparesis Current visit: Yes Status: Chronic Category: Medical Code(s): G81.91 - Hemiplegia, unspecified affecting right dominant side <Cruzito Simon - Last Filed: 10/27/17 18:24> Internal Medicine - PN: Subj *Date: 10/27/17 *Time: 18:23 Exam Vital signs and Labs for Last 24 Hours: Temp Pulse Resp BP Pulse Ox 98.6 F 77 18 115/58 933 H 10/27/17 15:03 10/27/17 15:03 10/27/17 15:03 10/27/17 15:03 10/27/17 15:03 I & O for Last 24 hours: Intake & Output 10/25/17 10/26/17 10/27/17 10/28/17 11:59 11:59 11:59 11:59 Intake Total 2914 / 2914 2293 / 2293 3728 / 3728 1629 / 1629 Output Total 2099 / 2100 2024 / 2024 2550 / 2550 1050 / 1050 Balance 814 / 814 268 / 268 1178 / 1178 579 / 579 Weight 153 lb 10.595 oz 158 lb 15.253 oz 154 lb 8 oz Assessment and Plan (1) Obstipation Current visit: Yes Status: Acute Category: Medical Code(s): K59.00 - Constipation, unspecified (2) Chronic constipation Current visit: Yes Status: Chronic Category: Medical Code(s): K59.09 - Other constipation (3) Intractable abdominal pain Current visit: Yes Status: Acute Category: Medical Code(s): R10.9 - Unspecified abdominal pain (4) CAD (coronary artery disease) Current visit: Yes Status: Chronic Category: Medical Code(s): I25.10 - Atherosclerotic heart disease of [place] coronary artery without angina pectoris (5) Cardiomyopathy Current visit: Yes Status: Chronic Category: Medical Code(s): I42.9 - Cardiomyopathy, unspecified (6) BPH (benign prostatic hyperplasia) Current visit: Yes Status: Chronic Category: Medical Code(s): N40.0 - Benign prostatic hyperplasia without lower urinary tract symptoms (7) Depression Current visit: Yes Status: Chronic Category: Medical Code(s): F32.9 - Major depressive disorder, single episode, unspecified (8) Abdominal aortic aneurysm (AAA) Current visit: Yes Status: Chronic Category: Medical Code(s): I71.4 - Abdominal aortic aneurysm, without rupture (9) Renal insufficiency Current visit: Yes Status: Chronic Category: Medical Code(s): N28.9 - Disorder of kidney and ureter, unspecified (10) Right hemiparesis Current visit: Yes Status: Chronic Category: Medical Code(s): G81.91 - Hemiplegia, unspecified affecting right dominant side - Assessment and plan all Dx Assessment and Plan for all problems:: Patient seen and examined this AM. He is very alert. Making slow progress with bowel prep. GI consult noted. Will continue per orders.
--- NOTE | 2017-10-28 07:52 | Progress Note ---
<Ele Bowden - Last Filed: 10/28/17 07:50> Internal Medicine - PN: Subj *Date: 10/28/17 *Time: 07:50 Interval history: Patient's son states he did not sleep last night due to getting enemas and having bowel movements. The patient states he has no abdominal pain today. His abdomen is softer. Exam Vital signs and Labs for Last 24 Hours: Temp Pulse Resp BP Pulse Ox 97.6 F 74 18 140/84 91 L 10/28/17 04:15 10/28/17 04:15 10/28/17 04:15 10/28/17 04:15 10/28/17 04:15 I & O for Last 24 hours: Intake & Output 10/25/17 10/26/17 10/27/17 10/28/17 11:59 11:59 11:59 11:59 Intake Total 2914 / 2914 2293 / 2293 3728 / 3728 2323 / 2323 Output Total 2100 / 2100 2024 / 2024 2550 / 2550 3050 / 3050 Balance 814 / 814 268 / 268 1178 / 1178 -727 / -727 Weight 153 lb 10.595 oz 158 lb 15.253 oz 154 lb 8 oz 159 lb - Constitutional no acute distress - *Routine Cardiovascular Exam Present: RRR - *Routine Abdominal Exam Present: soft, normoactive bowel sounds, distended (less). Absent: tenderness - *Routine Extremities Exam Absent: edema Assessment and Plan (1) Obstipation Current visit: Yes Status: Acute Category: Medical Code(s): K59.00 - Constipation, unspecified (2) Chronic constipation Current visit: Yes Status: Chronic Category: Medical Code(s): K59.09 - Other constipation (3) Intractable abdominal pain Current visit: Yes Status: Acute Category: Medical Code(s): R10.9 - Unspecified abdominal pain (4) CAD (coronary artery disease) Current visit: Yes Status: Chronic Category: Medical Code(s): I25.10 - Atherosclerotic heart disease of [place] coronary artery without angina pectoris (5) Cardiomyopathy Current visit: Yes Status: Chronic Category: Medical Code(s): I42.9 - Cardiomyopathy, unspecified (6) BPH (benign prostatic hyperplasia) Current visit: Yes Status: Chronic Category: Medical Code(s): N40.0 - Benign prostatic hyperplasia without lower urinary tract symptoms (7) Depression Current visit: Yes Status: Chronic Category: Medical Code(s): F32.9 - Major depressive disorder, single episode, unspecified (8) Abdominal aortic aneurysm (AAA) Current visit: Yes Status: Chronic Category: Medical Code(s): I71.4 - Abdominal aortic aneurysm, without rupture (9) Renal insufficiency Current visit: Yes Status: Chronic Category: Medical Code(s): N28.9 - Disorder of kidney and ureter, unspecified (10) Right hemiparesis Current visit: Yes Status: Chronic Category: Medical Code(s): G81.91 - Hemiplegia, unspecified affecting right dominant side - Assessment and plan all Dx Assessment and Plan for all problems:: We will get another KUB today. If improved, patient may be able to be discharged home. <Cruzito Simon - Last Filed: 10/28/17 09:57> Internal Medicine - PN: Subj *Date: 10/28/17 *Time: 09:52 Exam Vital signs and Labs for Last 24 Hours: Temp Pulse Resp BP Pulse Ox 98.3 F 73 20 154/80 96 10/28/17 08:00 10/28/17 08:00 10/28/17 08:00 10/28/17 08:00 10/28/17 08:00 I & O for Last 24 hours: Intake & Output 10/25/17 10/26/17 10/27/17 10/28/17 11:59 11:59 11:59 11:59 Intake Total 2914 / 2914 2293 / 2293 3728 / 3728 2323 / 2323 Output Total 2099 / 2099 202 / 202 2550 / 2550 3050 / 3050 Balance 814 / 814 268 / 268 1178 / 1178 -727 / -727 Weight 153 lb 10.595 oz 158 lb 15.253 oz 154 lb 8 oz 159 lb Assessment and Plan (1) Obstipation Current visit: Yes Status: Acute Category: Medical Code(s): K59.00 - Constipation, unspecified (2) Chronic constipation Current visit: Yes Status: Chronic Category: Medical Code(s): K59.09 - Other constipation (3) Intractable abdominal pain Current visit: Yes Status: Acute Category: Medical Code(s): R10.9 - Unspecified abdominal pain (4) CAD (coronary artery disease) Current visit: Yes Status: Chronic Category: Medical Code(s): I25.10 - Atherosclerotic heart disease of [place] coronary artery without angina pectoris (5) Cardiomyopathy Current visit: Yes Status: Chronic Category: Medical Code(s): I42.9 - Cardiomyopathy, unspecified (6) BPH (benign prostatic hyperplasia) Current visit: Yes Status: Chronic Category: Medical Code(s): N40.0 - Benign prostatic hyperplasia without lower urinary tract symptoms (7) Depression Current visit: Yes Status: Chronic Category: Medical Code(s): F32.9 - Major depressive disorder, single episode, unspecified (8) Abdominal aortic aneurysm (AAA) Current visit: Yes Status: Chronic Category: Medical Code(s): I71.4 - Abdominal aortic aneurysm, without rupture (9) Renal insufficiency Current visit: Yes Status: Chronic Category: Medical Code(s): N28.9 - Disorder of kidney and ureter, unspecified (10) Right hemiparesis Current visit: Yes Status: Chronic Category: Medical Code(s): G81.91 - Hemiplegia, unspecified affecting right dominant side - Assessment and plan all Dx Assessment and Plan for all problems:: Patient seen and examined this AM and nursing notes reviewed. Notes from evening shift indicate patient had a good night however his son, who stayed with him though the night, states he was awake all night because he had his suppository at 2345 and his enema at 0200 and bowels moved several times after that. MAR indicates he recieved his suppository and enema about 2030. He is alert and denies pain this morning. He ate a decent breakfast. Plan to repeat KUB to assess progress with bowel cleansing.
--- NOTE | 2017-10-29 08:02 | Progress Note ---
<Ele Bowden - Last Filed: 10/29/17 07:59> Internal Medicine - PN: Subj *Date: 10/29/17 *Time: 07:59 Interval history: The patient's is concerned that something has changed with the patient since yesterday. She states yesterday he was very alert and talkative and followed all commands. She states something happened yesterday around the middle of the day where he just sat and stared, and after this became much less alert. She states he laid awake most of the day and did sleep during the night , but then they could not get him awake this morning. She states they tried to give him his thyroid pill and it took forever to get him to understand how to swallow it and form his mouth around the straw. She states his bowels did move during the night and his abdomen is less tender. She is concerned, however to take him home due to this change in mental status. Exam Vital signs and Labs for Last 24 Hours: Temp Pulse Resp BP Pulse Ox 98.3 F 77 20 128/81 92 L 10/29/17 07:39 10/29/17 07:39 10/29/17 07:39 10/29/17 07:39 10/29/17 07:39 I & O for Last 24 hours: Intake & Output 10/26/17 10/27/17 10/28/17 10/29/17 11:59 11:59 11:59 11:59 Intake Total 2293 / 2293 3728 / 3728 2323 / 2323 1944 / 1944 Output Total 2024 / 2024 2550 / 2550 3050 / 3050 2850 / 2850 Balance 268 / 268 1178 / 1178 -727 / -727 -906 / -906 Weight 158 lb 15.253 oz 154 lb 8 oz 159 lb 163 lb 2.273 oz - Constitutional no acute distress - *Routine Respiratory Exam Present: CTA bilaterally - *Routine Cardiovascular Exam Present: RRR - *Routine Abdominal Exam Present: soft, normoactive bowel sounds. Absent: tenderness - *Routine Extremities Exam Absent: edema Assessment and Plan (1) Obstipation Status: Acute Category: Medical Code(s): K59.00 - Constipation, unspecified (2) Chronic constipation Status: Chronic Category: Medical Code(s): K59.09 - Other constipation (3) Intractable abdominal pain Status: Acute Category: Medical Code(s): R10.9 - Unspecified abdominal pain (4) CAD (coronary artery disease) Status: Chronic Category: Medical Code(s): I25.10 - Atherosclerotic heart disease of [place] coronary artery without angina pectoris (5) Cardiomyopathy Status: Chronic Category: Medical Code(s): I42.9 - Cardiomyopathy, unspecified (6) BPH (benign prostatic hyperplasia) Status: Chronic Category: Medical Code(s): N40.0 - Benign prostatic hyperplasia without lower urinary tract symptoms (7) Depression Status: Chronic Category: Medical Code(s): F32.9 - Major depressive disorder , single episode, unspecified (8) Abdominal aortic aneurysm (AAA) Status: Chronic Category: Medical Code(s): I71.4 - Abdominal aortic aneurysm , without rupture (9) Renal insufficiency Status: Chronic Category: Medical Code(s): N28.9 - Disorder of kidney and ureter, unspecified (10) Right hemiparesis Status: Chronic Category: Medical Code(s): G81.91 - Hemiplegia, unspecified affecting right dominant side - Assessment and plan all Dx Assessment and Plan for all problems:: We will discuss patient's altered mental status with Dr. Simon today. <Cruzito Simon - Last Filed: 10/30/17 08:53> Internal Medicine - PN: Subj *Date: 10/30/17 *Time: 08:51 Exam Vital signs and Labs for Last 24 Hours: Temp Pulse Resp BP Pulse Ox 98.3 F 77 20 128/81 92 L 10/29/17 07:39 10/29/17 07:39 10/29/17 07:39 10/29/17 07:39 10/29/17 07:39 I & O for Last 24 hours: Intake & Output 10/27/17 10/28/17 10/29/17 10/30/17 11:59 11:59 11:59 11:59 Intake Total 3728 / 3728 2323 / 2323 1944 / 1944 240 / 240 Output Total 2550 / 2550 3050 / 3050 2850 / 2850 1600 / 1600 Balance 1178 / 1178 -727 / -727 -906 / -906 -1360 / -1360 Weight 154 lb 8 oz 159 lb 163 lb 2.273 oz Assessment and Plan (1) Obstipation Status: Acute Category: Medical Code(s): K59.00 - Constipation, unspecified (2) Chronic constipation Status: Chronic Category: Medical Code(s): K59.09 - Other constipation (3) Intractable abdominal pain Status: Acute Category: Medical Code(s): R10.9 - Unspecified abdominal pain (4) CAD (coronary artery disease) Status: Chronic Category: Medical Code(s): I25.10 - Atherosclerotic heart disease of [place] coronary artery without angina pectoris (5) Cardiomyopathy Status: Chronic Category: Medical Code(s): I42.9 - Cardiomyopathy, unspecified (6) BPH (benign prostatic hyperplasia) Status: Chronic Category: Medical Code(s): N40.0 - Benign prostatic hyperplasia without lower urinary tract symptoms (7) Depression Status: Chronic Category: Medical Code(s): F32.9 - Major depressive disorder , single episode, unspecified (8) Abdominal aortic aneurysm (AAA) Status: Chronic Category: Medical Code(s): I71.4 - Abdominal aortic aneurysm , without rupture (9) Renal insufficiency Status: Chronic Category: Medical Code(s): N28.9 - Disorder of kidney and ureter, unspecified (10) Right hemiparesis Status: Chronic Category: Medical Code(s): G81.91 - Hemiplegia, unspecified affecting right dominant side - Assessment and plan all Dx Assessment and Plan for all problems:: Patient seen and examined. Once he got awake this morning, he seems to be back to his baseline. He has taken his medicines fine and ate some breakfast. He denies pain and wants to go home.
--- NOTE | 2017-10-29 21:02 | Discharge Summary ---
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 He has been experiencing abdominal pain for the past 3 months associated with constipation. He usually has a bowel movement every 3-5 days. He has been getting morphine for abdominal pain and his last bowel movement was 5 days ago. He has had no vomiting or coffee-ground emesis and no bleeding per rectum or diarrhea. Has no fever or chills. His has had him on full liquids and clear liquids. She purees all of his food. The abdominal pain has increased over the last week. Hospice has tried to intervene and have given him lactulose, suppositories and several enemas. They have also removed fecal impactions. He has continued to have abdominal pain and required pain medicine about every 2 hours. Thus they brought him to the emergency room for further studies. With evaluation in the emergency room CT scan revealed large amounts of stool in the large colon with a huge fecal impaction at the sigmoid colon. Thus he was admitted with surgical consultation. At the time of this exam patient is resting quietly on his right side. He has and family are at bedside. He remains remains n.p.o. until after surgical consultation. <Ele Bowden - 10/29/17 21:16> Hospital Course Hospital Course: Dr. Bernal saw the patient and ordered mineral oil enemas and dulcolax suppositories. He did have some BM's. He had a decubitus on the right hip and wound care was consulted. His diet was slowly advanced and his fiber and fluid was increased. The patient began having increased distention. Surgery scheduled Dulcolax suppositories and mineral oil enemas twice daily and ordered a milk and molasses enema. This did produce more BM's. He had a repeat KUB and it showed increasing stool throughout colon and persistent fecal impaction in the rectum with perhaps slight improvement. His enemas were continued and he was given a dose of Go Lytely. Dr. Canas was consulted. He contacted the pharmacy and asked if OIC medications such as Movantik or Relistor could be obtianed for the pt, but was told they do not carry them at the hospital. He recommended the pt be discharged with one of these options such as Movantik 25mg daily to help oppose the ongoing effects of narcotics. He felt his enemas and oral laxatives should be continued as well as a liquid/soft diet. He was given another milk and molasses enema and had more BM's. His abdominal pain improved and he was tolerating his diet. He had another KUB showing slightly improved constipation. He was stable to be discharged home on movantik. <Ele Bowden - 10/29/17 21:16> Objective Vital signs: Temp Pulse Resp BP Pulse Ox 98.3 F 77 20 128/81 92 L 10/29/17 07:39 10/29/17 07:39 10/29/17 07:39 10/29/17 07:39 10/29/17 07:39 <Cruzito Simon - 11/01/17 08:00> Temp Pulse Resp BP Pulse Ox 98.3 F 77 20 128/81 92 L 10/29/17 07:39 10/29/17 07:39 10/29/17 07:39 10/29/17 07:39 10/29/17 07:39 <Ele Bowden - 10/29/17 21:16> Narrative: - Constitutional no acute distress, thin Comments: Appears comfortable in the bed. Nods head with answers to questions - *Routine HEENT Exam Head: Present: normocephalic ENT: Present: mucous membranes moist - *Routine Respiratory Exam Comments: Poor inspiratory effort - *Routine Cardiovascular Exam Present: RRR - *Routine Abdominal Exam Comments: Hyperactive bowel sounds. Tender in left upper and mid quadrants. Fullness palpated. - *Routine Extremities Exam Absent: edema, calf tenderness - *Routine Skin Exam Comments: Wound on right hip. - *Routine Neurological Exam Present: alert Dysphagia <Ele Bowden - 10/29/17 21:16> DS: Diagnosis - Discharge Diagnosis (1) Obstipation Status: Acute (2) Chronic constipation Status: Chronic (3) Intractable abdominal pain Status: Acute (4) CAD (coronary artery disease) Status: Chronic (5) Cardiomyopathy Status: Chronic (6) BPH (benign prostatic hyperplasia) Status: Chronic (7) Depression Status: Chronic (8) Abdominal aortic aneurysm (AAA) Status: Chronic (9) Renal insufficiency Status: Chronic (10) Right hemiparesis Status: Chronic <Ele Bowden - 10/29/17 20:58> (1) Obstipation Status: Acute (2) Chronic constipation Status: Chronic (3) Intractable abdominal pain Status: Acute (4) CAD (coronary artery disease) Status: Chronic (5) Cardiomyopathy Status: Chronic (6) BPH (benign prostatic hyperplasia) Status: Chronic (7) Depression Status: Chronic (8) Abdominal aortic aneurysm (AAA) Status: Chronic (9) Renal insufficiency Status: Chronic (10) Right hemiparesis Status: Chronic (11) Decubitus ulcer Status: Acute <Cruzito Simon - 11/01/17 08:00> Discharge Plan - Patient Discharge Instructions ACTIVITY: Continue current activity <Ele Bowden - 10/29/17 21:16> DIET: advance to your usual diet <Ele Bowden - 10/29/17 21:16> Patient Instructions: DI for Constipation <Cruzito Simon - 11/01/17 08:00> Forms: <Cruzito Simon - 11/01/17 08:00> - Follow up Plan Follow up with: <Cruzito Simon - 11/01/17 08:00> Disposition: Hospice - Home <Cruzito Simon - 11/01/17 08:00> Home Medications: Home Medications Medication Instructions Recorded Confirmed Type Amlodipine Besylate [Amlodipine 10 mg PO DAILY 10/20/17 10/20/17 History 10mg Tab] Aspirin [Aspirin 81mg EC Tab] 81 mg PO DAILY 10/20/17 10/20/17 History Bisacodyl [Dulcolax 10mg Supp] 10 mg RC DAILYP PRN 10/20/17 10/20/17 History Hydralazine HCl 50 mg PO BID 10/20/17 10/20/17 History Hydromorphone HCl [Dilaudid 4mg 2 - 4 mg PO Q4HP PRN 10/20/17 10/21/17 History Tab] Hyoscyamine Sulfate [Levsin 0.125 mg PO Q4HP PRN 10/20/17 10/21/17 History 0.125mg tablet] Isosorbide Dinitrate [Isordil 20mg 40 mg PO TID 10/20/17 10/20/17 History tablet] Irving Castaneda B.lactis 1 each PO DAILY 10/20/17 10/20/17 History [Probiotic] Metoclopramide HCl [Reglan 5mg 5 mg PO TID 10/20/17 10/20/17 History Tablet] Morphine Sulfate [Morphine Sulfate 10 - 20 mg PO Q4-6H PRN MDD 80mg 10/20/1711/04 History 10mg/5ml Oral Soln] Nitroglycerin [Nitrostat 0.4mg SL 0.4 mg SL NEEDED PRN 10/20/17 10/20/17 History Tablet] Sennosides [Senna] 2 tab PO BID 10/20/17 10/21/17 History Torsemide [Demadex] 20 mg PO DAILY PRN 10/20/17 10/20/17 History hydrOXYzine HCl [Hydroxyzine HCl] 10 mg PO Q4-6H 10/20/17 10/20/17 History <Cruzito Simon - 11/01/17 08:00> Prescriptions/Medication Reconciliation: New [place]apentin [Neurontin 300mg capsule] 300 mg PO HS capsule Torsemide [Demadex 20mg tablet] 20 mg PO DAILY tablet Levothyroxine Sodium [Synthroid 75mcg (0.075mg) tablet] 75 mcg PO DAILYDM # 30 tab Acetaminophen [Acetaminophen 325mg tab] 650 mg PO Q8HP PRN tablet PRN Reason: As Needed For Fever Or Pain Naloxegol Oxalate [Movantik] 25 mg PO DAILY #30 tab Continue Morphine Sulfate [Morphine Sulfate 10mg/5ml Oral Soln] 10 - 20 mg PO Q4-6H PRN MDD 80mg PRN Reason: pain Amlodipine Besylate [Amlodipine 10mg Tab] 10 mg PO DAILY Hydralazine HCl 50 mg PO BID Hyoscyamine Sulfate [Levsin 0.125mg tablet] 0.125 mg PO Q4HP PRN PRN Reason: Secretions Isosorbide Dinitrate [Isordil 20mg tablet] 40 mg PO TID Bisacodyl [Dulcolax 10mg Supp] 10 mg RC DAILYP PRN PRN Reason: Constipation Metoclopramide HCl [Reglan 5mg Tablet] 5 mg PO TID Nitroglycerin [Nitrostat 0.4mg SL Tablet] 0.4 mg SL NEEDED PRN PRN Reason: Chest Pain Aspirin [Aspirin 81mg EC Tab] 81 mg PO DAILY L.acidoph,Paracasei, B.lactis [Probiotic] 1 each PO DAILY Hydromorphone HCl [Dilaudid 4mg Tab] 2 - 4 mg PO Q4HP PRN PRN Reason: PAIN Sennosides [Senna] 2 tab PO BID Torsemide [Demadex] 20 mg PO DAILY PRN PRN Reason: fluid hydrOXYzine HCl [Hydroxyzine HCl] 10 mg PO Q4-6H Changed LORazepam [Ativan 0.5mg tablet] 0.5 mg PO Q6HP PRN #0 MDD 2mg PRN Reason: Anxiety Simethicone [Phazyme] 60 mg PO TIDP PRN #0 PRN Reason: Abdominal Distention Discontinued Ciprofloxacin HCl [Cipro 500mg Tab] 500 mg PO BID Levothyroxine Sodium [Levothyroxine 50mcg (0.05mg) Tab] 50 mcg PO DAILY metroNIDAZOLE [metroNIDAZOLE 500mg Tablet] 500 mg PO TIDWM <Cruzito Simon - 11/01/17 08:00> - Additional Information Additional Information: Concur with discharge plan as outlined above. <Cruzito Simon - 11/01/17 08:00>
== END 2017-10-29 15:09 | disposition hospice, home (50) ==
LOC: ER 10:21 → 2ND 10:21
PROVIDERS: ADMIT Family Medicine; ATTEND Family Medicine